=== PATIENT | male | born 1960 | race Caucasian/White ===

== ENCOUNTER 2016-12-16 16:50 | Inpatient (IN) | payer MEDICARE, OTHER ==
--- NOTE | ~2016-12-16 | CT71 ---
[facility] A Service of [facility] RADIOLOGY TEXT RESULTS PATIENT: ANKUR PINEDO LOCATION: C3A 308- : 59 UNIT #: [id number] AGE: [address]: Kevin Pitts MD SEX: M ORDER DR: [id number] [facility] [address] [facility]. [place], [place] [address] [id number] I MR#: [id number] Acc #: [id number] NAME: ANKUR PINEDO : 1960 SEX: M STUDY DATE/TIME: 12/16/2016 17:03 UNIT: C3A PCU ROOM: 308 STUDY DESCRIPTION: CT Head Wo Contrast Attending Physician: Kevin Pitts M.D. Ordering Physician: Daniela Rodriguez M.D. Primary Care Physician: Gregg Peña M.D. MEDICAL IMAGING REPORT This report is preliminary unless electronic signature is present EXAM Head CT without HISTORY Continuous shaking daily, alcohol withdrawal, noncompliant with medications. Fell three days ago. Pain The CT exam was performed with one or more of the following radiation dose reduction techniques: automatic exposure control, adjustment of mA and/or kV according to patient size, and iterative reconstruction. FINDINGS Routine noncontrast head CT is viewed. COMPARISON: 03/04/16. There is no displaced calvarial fracture. The mastoid air cells are clear. There is a mucous retention cyst or polyp in the left maxillary sinus. There is no evidence for acute intracranial hemorrhage or extraaxial fluid collection. The patient has generalized atrophy and the rfxf-bv-dnkztecn white matter low attenuation which is nonspecific likely due to small vessel disease. Small lacunes, prominent perivascular spaces, basal ganglia best appreciated left putamen not changed. Atherosclerotic vascular calcifications at the base of the brain. No acute cortical infarcts appreciated. No significant interval change from 03/04/16. No intracranial mass effect. If there is clinical continued concern for acute CVA followup imaging would be indicated preferably with MRI if patient is a candidate. IMPRESSION 1. No acute intracranial abnormality but if there is clinical concern [facility] A Service of [facility] RADIOLOGY TEXT RESULTS PATIENT: ANKUR PINEDO LOCATION: C3A 308-01 : 58 UNIT #: [id number] AGE: [address]: Kevin Pitts MD SEX: M ORDER DR: for an acute CVA followup imaging would be indicated preferably with an MRI if the patient is a candidate. 2. Atrophy and probable sequela of small vessel disease not appreciably changed from 03/04/16. Vascular calcifications are noted base of the brain. Dictated by... Tri Kebede M.D. THIS IS AN ELECTRONICALLY VERIFIED REPORT Tri Kebede M.D. at 12/17/2016 10:19 AM Rima TD: 12/17/2016 09:21 JOB #: [id number] MEDICAL IMAGING REPORT Page 1 of 1 COPY
--- NOTE | ~2016-12-16 | EKG ---
PATIENT: ANKUR PINEDO UNIT #: [id number] Ventricular Rate: 117 BPM Atrial Rate: 117 BPM P-R Interval: 128 ms QRS Duration: 84 ms Q-T Interval: 336 ms QTC Calculation(Bezet): 468 ms P [place]: 15 degrees Calculated R [place]: 29 degrees Calculated T [place]: 25 degrees Diagnosis Line: Sinus tachycardia Diagnosis Line: Otherwise normal ECG Diagnosis Line: When compared with ECG of 18-SEP-2016 02:32, Diagnosis Line: Vent. rate has increased BY 44 BPM Diagnosis Line: Confirmed by RAHEL GALARZA MD ([id number]) on 12/18/2016 Diagnosis Line: 9:15:26 AM INTERPRETING MD: MICHELL RAMIRES
--- NOTE | ~2016-12-16 | DS ---
Unit #: [id number] #: [id number] Patient: ANKUR PINEDO [id number] [address] [place], [place] [address] [id number] I MR#: [id number] NAME: ANKUR PINEDO ROOM: 308 Age: 56 Sex: M Admission Date: 12/16/2016 : 1960 Discharge Date: 12/19/2016 Attending Physician: Kevin Pitts M.D. Primary Care Physician: Gregg Peña M.D. DISCHARGE SUMMARY REASON FOR ADMISSION Drug/alcohol evaluation. HISTORY OF PRESENT ILLNESS/HOSPITAL COURSE The patient is a 56-year-old male with underlying and longstanding history of chronic alcohol abuse. He presented after he stated that he drinks approximately a case of beer on a daily basis. He also stated that he had fallen awkwardly, had some foot pain, and wished to have detox done. His blood alcohol level on admission was 170. CT head was performed without contrast on day of admission and was negative. RPR performed negative. X-rays of right foot performed negative for acute fracture. Chest x-ray did not reveal any acute process. Routine laboratory studies were assessed. No acute abnormalities were noted. Urine tox screen was negative. He was placed on CIWA protocol. Banana bag was administered daily at telemetry floor. Consultation was placed to Dr. Rich of Psychiatry Services, who recommended outpatient followup at [facility]. Today, he is otherwise well, alert, and oriented x3. We will plan to discharge him home in stable condition with understanding that he will follow up as an outpatient with [facility] for [facility]. He will also follow up with his primary care provider in 7 to 10 days. Overall, his prognosis is guarded at best secondary to his lack of insight into his chronic medical conditions as well as ongoing alcohol abuse. This was reinforced with him on numerous occasions. FINAL DISCHARGE DIAGNOSES 1. Alcohol abuse. 2. History of hypertension. 3. Noncompliance. 4. Obesity. FINAL DISCHARGE MEDICATIONS Librium 25 mg p.o. q.8, scheduled x5 days; Norvasc 5 mg p.o. daily; multivitamin daily. DISCHARGE CONDITION Stable. Unit #: [id number] #: [id number] Patient: ANKUR PINEDO DISCHARGE DISPOSITION Home. FOLLOWUP [facility] for outpatient drug and alcohol rehab program. Dictated by... Josephine Johnson/manuel TD: 12/20/2016 05:56 JOB #: [id number] DISCHARGE SUMMARY Page 1 of 1 X Kevin Pitts MD X DISCHARGE SUMMARY
--- NOTE | ~2016-12-16 | HP ---
Unit #: [id number] #: [id number] Patient: ANKUR PINEDO [id number] [address] [place], [place] [address] [id number] I MR#: [id number] NAME: ANKUR PINEDO ROOM: 71083 Age: 56 Sex: M Admission Date: 12/16/2016 : 1960 Attending Physician: Xiao Malin M.D. Primary Care Physician: Gregg Peña M.D. HISTORY AND PHYSICAL CHIEF COMPLAINT Drug/alcohol evaluation. HISTORY OF PRESENT ILLNESS The patient is a 56-year-old male with a history of chronic alcohol abuse, brought to the emergency room for the evaluation of the alcohol abuse. The patient stated the patient drinks a case of beer daily. The patient had the last drink four hours ago before presenting to the emergency room. The patient is also complaining of the fall yesterday and complaining of the foot pain, status post fall while he was drinking beer. The patient is being admitted for the above reasons. The patient's alcohol level is 170. The patient is also complaining of shakiness and denies any fever, nausea or vomiting, denies any head trauma. PAST MEDICAL HISTORY Depression, cirrhosis, hepatitis C, alcoholism, normocytic anemia, thrombocytopenia, gastroesophageal reflux disease, esophageal varices, hepatic encephalopathy. PAST SURGICAL HISTORY Appendectomy, nasal surgery. ALLERGIES Morphine. HOME MEDICATIONS He takes the Effexor XR, Toprol-XL, Vistaril, multivitamin and omeprazole. SOCIAL HISTORY Patient has multiple admissions in the past for the similar presentation and is an active alcohol abuser, denies illicit drug abuse and no tobacco. FAMILY HISTORY Mother with coronary artery disease and father with throat cancer. REVIEW OF SYMPTOMS Fourteen-point review of symptoms performed and only pertinent positive findings are described above and remaining are negative. PHYSICAL EXAMINATION GENERAL APPEARANCE: On examination the patient is lying on a bed not in acute distress. VITAL SIGNS: Temperature 99.7, pulse 131, respiratory rate 25, blood Unit #: [id number] #: [id number] Patient: ANKUR PINEDO pressure 111/79, sating 93% at room air. HEENT: Head atraumatic, normocephalic. Pupils equal, round and reacting to light and accommodation. Dry mucous membrane. NECK: Supple. No JVD. LUNGS: Clear to auscultation HEART: Regular rate and rhythm. ABDOMEN: Soft, positive bowel sounds. EXTREMITIES: Patient has a laceration at the right lower leg and the patient complains of the right foot. NEUROLOGIC: Patient has tremors at rest. No gross focal motor deficit. DIAGNOSTIC STUDIES LABORATORY DATA: Alcohol is 170. Glucose 105, BUN 11, creatinine 0.9, sodium 141, potassium 4, chloride 102, bicarb 22, calcium 8.4, total protein 8.7, AST 64, ALT 48, alkaline phosphatase 88 and CK is 216, INR is 1.1, WBC 12, hemoglobin 15.8, hematocrit 47.5, platelets 226. IMAGING: CT of the head is negative. Chest x-ray is negative. ASSESSMENT 1. Alcohol abuse. 2. Status post fall. PLAN 1. Plan is to admit the patient to the inpatient with the telemetry. 2. Continue with the [facility] protocol. 3. Check the x-ray of the right foot. 4. Repeat the labs again in the morning. Further recommendations will follow. Dictated by Josephine Olson TD: 12/16/2016 20:32 JOB #: [id number] HISTORY AND PHYSICAL Page 1 of 1 X X HISTORY AND PHYSICAL
--- NOTE | ~2016-12-16 | XA166 ---
[facility] A Service of [facility] RADIOLOGY TEXT RESULTS PATIENT: ANKUR PINEDO LOCATION: C3A PC 308- : 58 UNIT #: [id number] AGE: [address]: Kevin Pitts MD SEX: M ORDER DR: [id number] [place] [id number] [facility]. [place], [place] [address] [id number] I MR#: [id number] Acc #: [id number] NAME: ANKUR PINEDO : 1960 SEX: M STUDY DATE/TIME: 12/18/2016 7:31 UNIT: C3A PCU ROOM: 308 STUDY DESCRIPTION: XA PICC Line Placement WO Port Attending Physician: Kevin Pitts M.D. Ordering Physician: Allyssa Mohr M.D. Primary Care Physician: Gregg Peña M.D. MEDICAL IMAGING REPORT This report is preliminary unless electronic signature is present PRE-PROCEDURE The procedure was explained to the patient and/or patient financial representative including risks, benefits, potential complications and potential for alternative forms of treatment. Informed consent was obtained, and prior to initiating the procedure a formal timeout procedure was performed. PROCEDURE Using full standard sterile barrier technique, including caps, gowns, gloves, masks, as well as sterile skin preparation and standard sterile draping, the right arm was prepped and draped in the usual fashion, and real-time sterile ultrasound guidance was used to localize an arm vein and to confirm vessel patency. A hard copy ultrasound image was recorded. After local anesthesia with 1% Xylocaine, the vein was punctured using real-time sterile ultrasound guidance, and an 0.018 guidewire was advanced into the superior vena cava, using fluoroscopic guidance. A 5-Montenegrin dual-lumen PICC was then measured and deployed with the tip positioned in the superior vena cava. The position of the line was documented with a radiographic image. The line was secured in place with an adhesive dressing and an antibiotic patch was applied. Total fluoro time was 0.5 minutes. Single spot image obtained. IMPRESSION Successful placement of a 5-Montenegrin dual-lumen PowerPICC via the right arm under ultrasound and fluoroscopic guidance. The tip of the PICC is in good position in the superior vena cava. Dictated by... Kwame Barreto M.D. THIS IS AN ELECTRONICALLY VERIFIED REPORT Kwame Barreto M.D. at 12/22/2016 2:34 PM CHRISTIANA/hernan [facility] A Service of [facility] RADIOLOGY TEXT RESULTS PATIENT: ANKUR PINEDO LOCATION: C3A 308-01 : 58 UNIT #: [id number] AGE: [address]: Kevin Pitts MD SEX: M ORDER DR: TD: 12/22/2016 12:59 JOB #: [id number] MEDICAL IMAGING REPORT Page 1 of 1 COPY
--- NOTE | ~2016-12-16 | CO ---
Unit #: [id number] #: [id number] Patient: ANKUR PINEDO [id number] [address] [place], [place] [address] [id number] I MR#: [id number] NAME: ANKUR PINEDO ROOM: 308 Age: 56 Sex: M Admission Date: 12/16/2016 : 1960 Attending Physician: Kevin Pitts M.D. Primary Care Physician: Gregg Peña M.D. Consultation Date: 12/18/2016 CONSULTATION REPORT REASON FOR CONSULTATION Alcohol abuse withdrawals. HISTORY OF PRESENT ILLNESS Mr. Ankur Pinedo is a 56-year-old male, seen in [facility] on 12/18/2016 with the above-mentioned complaint. The patient was dressed in hospital attire, lying comfortably in bed, seemed somewhat anxious and nervous. The patient reported having shakes, anxiety, mood lability, restlessness, rapid heart rate, having withdrawal from alcohol. The patient reported that he was drinking almost 1 to 2 cases of beer a day for a long period of time. The patient currently denied any suicidal or homicidal ideation. Denied any psychotic symptom. The patient was admitted on 12/16/2016 with alcohol withdrawals. The patient reported that he was drinking on a daily basis and last drink was before admission. The patient's blood alcohol level was 170 at the time of admission. The patient was shaky, nervous, anxious, but currently denied any suicidal or homicidal ideation. Denied any psychotic symptom except for withdrawal from alcohol and severe anxiety. PAST PSYCHIATRIC HISTORY Remarkable for history of alcohol abuse. No history of any other psychiatric illness or treatment. PAST MEDICAL HISTORY Remarkable for history of depression, cirrhosis, hepatitis C, alcoholism, normocytic anemia, thrombocytopenia, gastroesophageal reflux disease, esophageal varices, hepatic encephalopathy. MEDICATIONS The patient is on Effexor XR, Toprol-XL, Vistaril, multivitamin, omeprazole. FAMILY HISTORY AND SOCIAL HISTORY The patient reports that he has good support system. No history of any abuse, but history of substance abuse mainly alcohol. No history of any illicit drug use. REVIEW OF SYSTEMS Complete review of systems is remarkable for severe anxiety, restlessness, anxious, tremors. MENTAL STATUS EXAMINATION General appearance, the patient dressed casually in hospital attire, lying comfortably in bed, seemed somewhat anxious and nervous. Attention span Unit #: [id number] #: [id number] Patient: ANKUR PINEDO and concentration, fair. Speech, regular rate and coherent. Oriented in time, place, and person. Mood and affect were sad, dysphoric, anxious. Thought process, coherent. Thought content, the patient denied any thoughts of harming self or others, but guarded. Recent and remote memory, fair. Language, able to name object, repeat phrases. Fund of knowledge, fair. Insight and judgment, fair to slightly impaired. DIAGNOSES Psychiatric: Alcohol use disorder, severe, F10.20; mood disorder, not otherwise specified, F32.9. Secondary diagnosis: Deferred. Medical diagnosis: Please refer to H and P. Stressors: Psychosocial stressors. ASSESSMENT AND PLAN 1. Supportive psychotherapy and psychoeducation provided to the patient. 2. Educated about benefits and side effects of medication and course and prognosis of illness. 3. Advised to continue with CIWA protocol and inpatient treatment. If needed, consider further adjustment of medication. Advised the patient to follow up after discharge at [facility] CD-IOP program telephone #[phone]. Please feel free to call if any questions, telephone #[phone]. 4. 1930. Dictated by... Abram Rich M.D. LARRY/manuel TD: 12/22/2016 00:29 JOB #: [id number] CONSULTATION REPORT Page 1 of 1 X Abram Rich MD X CONSULTATION REPORT
--- NOTE | ~2016-12-16 | CR72 ---
[facility] A Service of [facility] RADIOLOGY TEXT RESULTS PATIENT: ANKUR PINEDO LOCATION: [facility] 308- : 59 UNIT #: [id number] AGE: [address]: Kevin Pitts MD SEX: M ORDER DR: [id number] [facility] [address] [facility]. [place], [place] [address] [id number] I MR#: [id number] Acc #: [id number] NAME: ANKUR PINEDO : 1960 SEX: M STUDY DATE/TIME: 12/16/2016 16:31 [facility] STUDY DESCRIPTION: CR Chest Single View Portable Attending Physician: Kevin Pitts M.D. Ordering Physician: Daniela Rodriguez M.D. Primary Care Physician: Gregg Peña M.D. MEDICAL IMAGING REPORT This report is preliminary unless electronic signature is present EXAM Portable chest. INDICATIONS 56-year-old male with cough and shortness of breath for 3 days. COMPARISON Compared with 09/12/2016. FINDINGS The lungs are well expanded. No acute infiltrate. Calcified hilar lymph nodes. IMPRESSION No active disease. Dictated by... Evan Miles M.D. THIS IS AN ELECTRONICALLY VERIFIED REPORT Evan Miles M.D. at 12/17/2016 11:32 AM ANTIONE/seble TD: 12/17/2016 08:40 JOB #: [id number] MEDICAL IMAGING REPORT Page 1 of 1 COPY
--- NOTE | ~2016-12-16 | CR127 ---
[facility] A Service of [facility] & [facility] RADIOLOGY TEXT RESULTS PATIENT: ANKUR PINEDO LOCATION: C3A 308- : 58 UNIT #: [id number] AGE: [address]: Kevin Pitts MD SEX: M ORDER DR: [id number] [facility] [address] [facility]. [place], [place] [address] [id number] I MR#: [id number] Acc #: [id number] NAME: ANKUR PINEDO : 1960 SEX: M STUDY DATE/TIME: 12/16/2016 20:02 UNIT: A U ROOM: [facility] STUDY DESCRIPTION: CR Foot Complete Min 3 View Rt Attending Physician: Kevin Pitts M.D. Ordering Physician: Ed Nathan Mojica M.D. Primary Care Physician: Gregg Peña M.D. MEDICAL IMAGING REPORT This report is preliminary unless electronic signature is present EXAM Foot, right, 3 views. HISTORY Anterior foot pain for 3 days after a fall. COMMENT 3 views of the right foot are reviewed. There is a comminuted fracture involving the distal diametaphysis of the right fifth metatarsal. Fracture is comminuted with some impaction predominantly horizontally oriented. No obvious intraarticular extension. Vascular calcifications suggest diabetes or renal disease. IMPRESSION Fracture of the distal diametaphysis, fifth metatarsal, details above. No intraarticular extension. Fracture is predominantly impacted. Dictated by... Tri Kebede M.D. THIS IS AN ELECTRONICALLY VERIFIED REPORT Tri Kebede M.D. at 12/17/2016 12:19 PM FE/seble TD: 12/17/2016 11:39 JOB #: [id number] MEDICAL IMAGING REPORT Page 1 of 1 COPY
[2016-12-16 16:26] LABS: BASOPHIL% 0.4 % (0-2.5); EOSINOPHIL# 0.1 X10e3 (0-0.7); EOSINOPHIL% 0.7 % (0.0-7.0); HEMATOCRIT 47.5 % (38.0-50.0); HEMOGLOBIN 15.8 gm/dL (13.0-16.0); LYMPHOCYTE# 5.5 X10e3 (1.0-3.5); LYMPHOCYTE% 46.1 % (17.0-45.0); MEAN CELL VOLUME 90.6 FL (83-96); MEAN CORPUSCULAR HEMOGLOBIN 30.1 PG (28-34); MEAN CORPUSCULAR HGB CONC 33.3 g/dL (30-36); MEAN PLATELET VOLUME 7.3 FL (6.5-11.5); MONOCYTE# 0.6 X10e3 (0-1.0); MONOCYTE% 5.1 % (3.0-12.0); NEUTROPHIL# 5.7 X10e3 (1.5-7.1); NEUTROPHIL% 47.7 % (40-75); PLATELET COUNT 226 X10e3 (140-420); RED BLOOD COUNT 5.25 X10e (3.90-5.60); RED CELL DISTRIBUTION WIDTH 16.1 % (11.0-15.5)
[2016-12-16 16:28] LABS: DIFF IND NO
[2016-12-16 16:32] LABS: POC - TROPONIN <0.05 ng/mL (<=0.05)
[2016-12-16 16:43] LABS: INR 1.1; PARTIAL THROMBOPLASTIN TIME 24.4 SECONDS (23.5-31.3); PROTHROMBIN TIME (PATIENT) 11.4 SECONDS (9.6-11.5)
[~2016-12-16 16:50] MED LIST: ACETAMINOPHEN PO; AL-MAG HYDROX-S30 M1 PO; ALBUTEROL17 GM INH; AMLODIPINE BESYL5 MG PO; ATIVAN0.5 M1 PO; ATIVAN0.5 MG PO; BENTYL10 MG PO; BUSPAR15 M2 PO; CELEXA20 MG PO; CIPRO PO; CVS MENOPAUSE PO; DAILY VALUE1 EACH PO; EFFEXOR XR150 MG PO; FAMOTIDINE PO; FLUOXETINE HCL60 MG PO; FOLIC ACID1 MG PO; HYDROXYZINE HCL50 MG PO; IBUPROFEN400 MG PO; KRISTALOSE20 G/PK1 PO; LEVAQUIN750 MG PO; LIBRAX CAPSULE1 CA1 PO; LIBRIUM PO; LIBRIUM25 M1 PO; LIBRIUM25 MG PO; LOPERAMIDE HCL2 M1 PO; LORTAB 5/500 TA1 TA1 PO; METOPROLOL TAR25 MG PO; MULTI VITAMIN1 EACH PO; MULTIVITAMIN WI1 CAP PO; NEURONTIN600 MG PO; NEURONTIN800 MG PO; NO MEDICATIONS; OMEPRAZOLE20 M2 PO; OMEPRAZOLE40 M1 PO; PANTOPRAZOLE SO40 MG PO; PERCOCET; PHENERGAN PO; PHENERGAN25 MG PO; PREVACID PO; PRILOSEC PO; PRILOSEC20 MG PO; PROTONIX PO; PROZAC PO; REMERON PO; REMERON15 MG PO; SEROQUEL PO; SEROQUEL XR400 M1 PO; SEROQUEL400 MG PO; SEROQUEL50 MG PO; SPIRONOLACTONE50 MG PO; TEGRETOL-XR100 MG PO; THIAMINE HCL100 M1 PO; TOPROL XL50 MG PO; UNKNOWN MEDS; VISTARIL PO; VITAMIN B-COMP1 EACH PO; ZANTAC PO; ZANTAC150 MG PO; ZOFRAN PO; ZOLOFT PO; [UNRECOGNIZED DRUG - REMARK]
[2016-12-16 17:18] LABS: ALBUMIN SERUM 4.2 g/dL (3.5-5.0); ALKALINE PHOSPHATASE 88 U/L (32-92); ALT (SGPT) 48 U/L (10-40); AST (SGOT) 64 U/L (10-42); BILIRUBIN, DIRECT 0.1 mg/dL (0.0-0.2); BILIRUBIN,INDIRECT 0.8 mg/dL (0.0-0.9); BILIRUBIN,TOTAL 0.9 mg/dL (0.2-2.0); BLOOD UREA NITROGEN 11 mg/dL (9-23); BUN/CREATININE RATIO 12.22; CALCIUM SERUM 8.4 mg/dL (8.4-10.2); CARBON DIOXIDE 22 mmol/L (22-31); CHLORIDE 102 mmol/L (100-111); CPK (CREATINE PHOSPHOKINASE) 216 IU/L (36-174); CREATININE SERUM 0.9 mg/dL (0.6-1.4); GLOM FILT RATE Estimated ABOVE60 mL/min (>60); GLUCOSE FASTING 105 mg/dL (70-110); PROTEIN TOTAL SERUM 8.7 g/dL (6.0-8.3); SODIUM 141 mmol/L (135-145)
[2016-12-16 17:20] LABS: ALCOHOL BLOOD 170 mg/dL (0)
[2016-12-16 17:34] LABS: INFLUENZA A NEG (NEG); INFLUENZA B NEG (NEG)
[2016-12-16 18:18] LABS: URINE SOURCE CLEAN CATCH
[2016-12-16 18:29] LABS: URINE APPEARANCE CLEAR; URINE BILIRUBIN NEG (NEG); URINE BLOOD NEG (NEG); URINE COLOR YELLOW; URINE GLUCOSE NEG (NEG); URINE KETONE NEG (NEG); URINE LEUKOCYTE ESTERASE NEG (NEG); URINE NITRATE NEG (NEG); URINE PH 6.5 (5-8); URINE PROTEIN 1+ (NEG); URINE SPECIFIC GRAVITY 1.017 (1.003-1.035)
[2016-12-16 18:32] LABS: URINE BACTERIA AUWI NEG (NEGATIVE); URINE SQUAMOUS EPITHELIAL CELL NONE SEEN /[HPF]; UWBCS1 AUWI 0-2 (0-5)
[2016-12-16 18:39] LABS: CULTURE INDICATED? NO
[2016-12-16 18:40] LABS: AMPHETAMINE NEG (NEG); BARBITURATES NEG (NEG); BENZODIAZEPINES NEG (NEG); COCAINE NEG (NEG); MARIJUANA NEG (NEG); OPIATES NEG (NEG); TRICYCLIC ANTIDEPRESSANTS NEG (NEG); U METHADONE NEG (NEG)
[2016-12-17 09:23] LABS: BASOPHIL% 0.3 % (0-2.5); EOSINOPHIL# 0.1 X10e3 (0-0.7); LYMPHOCYTE# 2.8 X10e3 (1.0-3.5); LYMPHOCYTE% 46.7 % (17.0-45.0); MEAN CELL VOLUME 90.2 FL (83-96); MEAN CORPUSCULAR HEMOGLOBIN 30.1 PG (28-34); MEAN CORPUSCULAR HGB CONC 33.4 g/dL (30-36); MEAN PLATELET VOLUME 7.2 FL (6.5-11.5); MONOCYTE# 0.5 X10e3 (0-1.0); MONOCYTE% 8.7 % (3.0-12.0); NEUTROPHIL# 2.6 X10e3 (1.5-7.1); NEUTROPHIL% 43.3 % (40-75); PLATELET COUNT 126 X10e3 (140-420); RED BLOOD COUNT 4.44 X10e (3.90-5.60); RED CELL DISTRIBUTION WIDTH 15.3 % (11.0-15.5)
[2016-12-17 09:30] LABS: DIFF IND NO; HEMOGLOBIN 13.4 gm/dL (13.0-16.0); WHITE BLOOD COUNT 5.9 X10e3 (4.0-10.5)
[2016-12-17 10:21] LABS: THYROID STIMULATING HORMONE 1.07 uIU/ml (0.34-5.60)
[2016-12-17 10:28] LABS: FREE THYROXIN (T4) 0.64 ng/dL (0.58-1.64)
[2016-12-17 10:33] LABS: ALBUMIN SERUM 3.7 g/dL (3.5-5.0); ALKALINE PHOSPHATASE 78 U/L (32-92); ALT (SGPT) 38 U/L (10-40); AST (SGOT) 49 U/L (10-42); BILIRUBIN,TOTAL 1.1 mg/dL (0.2-2.0); BLOOD UREA NITROGEN 11 mg/dL (9-23); BUN/CREATININE RATIO 13.75; CALCIUM SERUM 8.3 mg/dL (8.4-10.2); CARBON DIOXIDE 24 mmol/L (22-31); CHLORIDE 105 mmol/L (100-111); CREATININE SERUM 0.8 mg/dL (0.6-1.4); GLOM FILT RATE Estimated ABOVE60 mL/min (>60); GLUCOSE FASTING 119 mg/dL (70-110); POTASSIUM 3.6 mmol/L (3.5-5.1); PROTEIN TOTAL SERUM 7.4 g/dL (6.0-8.3); SODIUM 138 mmol/L (135-145)
[2016-12-18 05:45] LABS: HEMATOCRIT 37.2 % (38.0-50.0); HEMOGLOBIN 12.6 gm/dL (13.0-16.0); MEAN CELL VOLUME 89.2 FL (83-96); MEAN CORPUSCULAR HEMOGLOBIN 30.3 PG (28-34); MEAN CORPUSCULAR HGB CONC 33.9 g/dL (30-36); MEAN PLATELET VOLUME 7.3 FL (6.5-11.5); RED BLOOD COUNT 4.17 X10e (3.90-5.60); RED CELL DISTRIBUTION WIDTH 15.9 % (11.0-15.5); WHITE BLOOD COUNT 4.6 X10e3 (4.0-10.5)
[2016-12-18 06:40] LABS: BLOOD UREA NITROGEN 8 mg/dL (9-23); BUN/CREATININE RATIO 13.33; CALCIUM SERUM 8.6 mg/dL (8.4-10.2); CARBON DIOXIDE 24 mmol/L (22-31); CHLORIDE 107 mmol/L (100-111); CREATININE SERUM 0.6 mg/dL (0.6-1.4); GLOM FILT RATE Estimated ABOVE60 mL/min (>60); GLUCOSE FASTING 123 mg/dL (70-110); MAGNESIUM 1.6 mg/dL (1.6-3.0); POTASSIUM 3.2 mmol/L (3.5-5.1); SODIUM 138 mmol/L (135-145)
[2016-12-19 08:38] LABS: BUN/CREATININE RATIO 15.71; CALCIUM SERUM 8.9 mg/dL (8.4-10.2); CREATININE SERUM 0.7 mg/dL (0.6-1.4); GLOM FILT RATE Estimated 104.8 mL/min (>60); MAGNESIUM 1.8 mg/dL (1.6-3.0); POTASSIUM 3.9 mmol/L (3.5-5.1)
[2016-12-19] MEDS ORDERED: TYL325 PO (12:19)
[2016-12-19] MEDS ORDERED: AL-MAG HYDROX-S30 M1 PO (12:20)
[2016-12-19] MEDS ORDERED: NORVASC PO (12:21)
[2016-12-19] MEDS ORDERED: LIBRIUM25 MG PO (12:21)
== END 2016-12-19 14:58 | disposition home or self-care (01) | DRG 897 ==
LOC: CED 16:50 → CEDOF 20:01 → C3A PCU 22:40
PROVIDERS: Emergency Medicine; Family Medicine; Internal Medicine
PROC: 02HV33Z Insertion of Infusion Device into Superior Vena Cava, Percutaneous Approach (ICD-10-PCS; principal; 2016-12-18)
PROC: B518YZA Fluoroscopy of Superior Vena Cava using Other Contrast, Guidance (ICD-10-PCS; 2016-12-18)
PROC: B548ZZA Ultrasonography of Superior Vena Cava, Guidance (ICD-10-PCS; 2016-12-18)
DX: F10.239 Alcohol dependence with withdrawal, unspecified (principal); F39 Unspecified mood [affective] disorder; F32.9 Major depressive disorder, single episode, unspecified; Z91.19 Patient's noncompliance with other medical treatment and regimen; E66.9 Obesity, unspecified; F17.210 Nicotine dependence, cigarettes, uncomplicated; K21.9 Gastro-esophageal reflux disease without esophagitis; Z90.49 Acquired absence of other specified parts of digestive tract; Z82.49 Family history of ischemic heart disease and other diseases of the circulatory system; Z80.8 Family history of malignant neoplasm of other organs or systems; Z88.5 Allergy status to narcotic agent; S81.811A Laceration without foreign body, right lower leg, initial encounter; W19.XXXA Unspecified fall, initial encounter
CPT/HCPCS: 36415; 70450; 71010; 73630; 76937; 77001; 80048; 80053; 80076; 80307; 81003; 82550; 82553; 82607; 83735; 84439; 84443; 84484; 85025; 85027; 85610; 85730; 86592; 87804; 90688; 93005; 94760; 96361; 96374; 96376; 99285; C1751; G0480; J1650; J2060; J2550; J3411; J7042

== ENCOUNTER 2016-12-26 23:48 | Inpatient (IN) | payer MEDICARE, OTHER ==
--- NOTE | ~2016-12-26 | CO ---
Unit #: [id number] #: [id number] Patient: ANKUR PINEDO [id number] [facility] [address] [place] [address] [id number] I MR#: [id number] NAME: ANKUR PINEDO ROOM: [facility] Age: 56 Sex: M Admission Date: 12/26/2016 : 1960 Attending Physician: Madi Barragan M.D. Primary Care Physician: Gregg Peña M.D. CONSULTATION REPORT REASON FOR CONSULT Right foot issue. SUBJECTIVE "I somehow fell and I have a bruise on my foot and my little toe. It's a lot better than it was now but it was bruised." OBJECTIVE Vital signs within normal limits. Noted small approximately 1 cm bruised area to lateral right fifth toe, slight discoloration to right fifth metatarsal area. No pain to palpation. Good range of motion noted to foot and toes and ankle. ASSESSMENT Bruise. PLAN Observation. Dictated by... Marlene Mitchell/jacoby TD: 12/27/2016 20:20 JOB #: [id number] CONSULTATION REPORT Page 1 of 1 X Xiomara Blackwell APR X CONSULTATION REPORT
--- NOTE | ~2016-12-26 | PN ---
Unit #: [id number] #: [id number] Patient: ANKUR PINEDO [id number] [facility] [address] [place] [address] [id number] I MR#: [id number] NAME: ANKUR PINEDO ROOM: [facility] Age: 56 Sex: M Admission Date: 12/26/2016 : 1960 Attending Physician: Madi Barragan M.D. Admitting Physician: Madi Barragan M.D. Primary Care Physician: Josephine Alexis PROGRESS NOTES DATE OF SERVICE: 12/31/2016 SUBJECTIVE Mr. Pinedo is a 56-year-old white male, who was seen today and chart was reviewed and the case was discussed with the staff. He has been anxious, withdrawn, and rather seclusive to himself. Meanwhile, he has been cooperative with treatment recommendations and was taking the medications and tolerating them fairly well with no reported side effects. MENTAL STATUS EXAMINATION: Middle-aged white male, who was casually dressed with marginal personal hygiene, appears to be in some distress or discomfort. He was awake and alert with impaired attention and concentration. His mood was anxious with a congruent affect. His speech was slow and restricted in content. His thought process was disorganized with some looseness of association. His insight and judgment remain significantly impaired. TREATMENT PLAN: 1. We will continue him on his current medications and treatment protocol. We will monitor his response to the medications and make further adjustments as needed. 2. We will continue to follow up. Dictated by... Josephine Delcid/manuel TD: 12/31/2016 08:17 JOB #: [id number] [facility] PROGRESS NOTES Page 1 of 1 X Madi Barragan MD PROGRESS NOTE
--- NOTE | ~2016-12-26 | PN ---
Unit #: [id number] #: [id number] Patient: ANKUR PINEDO [id number] [facility] [address] [place] [address] [id number] I MR#: [id number] NAME: ANKUR PINEDO ROOM: [facility] Age: 56 Sex: M Admission Date: 12/26/2016 : 1960 Attending Physician: Madi Barragan M.D. Admitting Physician: Madi Barragan M.D. Primary Care Physician: Josephine Alexis PROGRESS NOTES DATE 01/02/2017 DISCUSSION Mr. Pinedo is a 56-year-old white male with alcohol dependence and mood disorder who was seen today and chart was reviewed and case was discussed with the staff who report patient has been doing better and patient still seemed to be anxious, withdrawn, unkempt, disheveled though he states feeling somewhat better. He has been compliant with the treatment recommendations and taking medications and tolerating them fairly well with no reported side effects. MENTAL STATUS EXAMINATION Middle-aged white male who was casually dressed with fair personal hygiene and appears to be in no acute distress or discomfort. He was awake and alert on interaction with intact orientation. His mood was anxious with congruent affect. His speech is slow and restricted in content. He denies any suicidal or homicidal ideations. His insight and judgement remains slightly impaired. TREATMENT PLAN 1. We will continue on his current medications and treatment protocol. Will monitor his response to the medications and make further adjustments as needed. 2. Will continue to follow up. Dictated by... Josephine Delcid/jacoby TD: 01/02/2017 19:30 JOB #: [id number] Unit #: [id number] #: [id number] Patient: ANKUR PINEDO PROGRESS NOTES Page 1 of 1 X Madi Barragan MD PROGRESS NOTE
--- NOTE | ~2016-12-26 | DS ---
Unit #: [id number] #: [id number] Patient: ANKUR PINEDO [id number] [facility] [address] [place] [address] [id number] MR#: [id number] NAME: ANKUR PINEDO ROOM: [facility] Age: 56 Sex: M Admission Date: 12/26/2016 : 1960 Discharge Date: 01/05/2017 Attending Physician: Madi Barragan M.D. Primary Care Physician: Gregg Peña M.D. DISCHARGE SUMMARY IDENTIFYING DATA Mr. Pinedo is a 56-year-old white male who is a resident of [place], [place] and is known to us from previous encounters and was transferred to us from [facility] on a voluntary basis. DISCHARGE DIAGNOSES Psychiatric: Alcohol dependence, moderate, in acute withdrawals. Alcohol-induced mood disorder. Medical: Hypertension, hepatitis C, esophageal varices, history of cerebrovascular accident, and history of pancreatitis. Stressors: Moderate psychosocial stressors. HISTORY OF PRESENT ILLNESS Please see initial evaluation for details. PAST PSYCHIATRIC HISTORY Please see initial evaluation for details. PAST MEDICAL HISTORY Please see initial evaluation for details. HOSPITAL COURSE The patient was admitted to the adult chemical dependency unit at [facility] and was oriented to the hospital environment. Routine p.r.n. medications were initiated and he was started back on his home medications and was closely monitored. He was taking the medications regularly. He was tolerating them fairly well and was able to come out of the detox without any complications and was willing to continue treatment on an outpatient basis and as such, it was decided that he will be discharged home and will continue treatment on an outpatient basis. DISCHARGE MEDICATIONS Seroquel 200 mg at bedtime for mood disorder; Effexor XR 150 mg a day for depression; Protonix 40 mg a day for gastroesophageal reflux disease. DISCHARGE CONDITION Stable. PROGNOSIS Fair. Unit #: [id number] #: [id number] Patient: ANKUR PINEDO Dictated by... Josephine Delcid/chuchol TD: 01/05/2017 06:47 JOB #: [id number] DISCHARGE SUMMARY Page 1 of 1 X Madi Barragan MD SUMMARY
--- NOTE | ~2016-12-26 | CR63 ---
[facility] A Service of [facility] RADIOLOGY TEXT RESULTS PATIENT: ANKUR PINEDO LOCATION: P1E P180-1 : 58 UNIT #: [id number] AGE: [address]: Madi Barragan MD SEX: M ORDER DR: [id number] [facility] [address]. [place], [place] [address] [id number] I MR#: [id number] Acc #: [id number] NAME: ANKUR PINEDO : 1960 SEX: M STUDY DATE/TIME: 12/29/2016 16:59 UNIT: [facility] ROOM: [facility] STUDY DESCRIPTION: CR Chest 2 View Attending Physician: Madi Barragan M.D. Ordering Physician: Madi Barragan M.D. Primary Care Physician: Gregg Peña M.D. MEDICAL IMAGING REPORT This report is preliminary unless electronic signature is present EXAM 2-view chest, 12/29/2016 INDICATION Cough and fever. FINDINGS PA and lateral views of the chest compared to 12/16/2016. Heart and mediastinal contour is normal. The lungs are clear. There is slightly increased density in the retrocardiac left lower lobe. IMPRESSION Slight increased density in the retrocardiac left lower lobe may represent atelectasis or developing infiltrate. Please correlate with clinical symptoms. Dictated by... Zachary Singer M.D. THIS IS AN ELECTRONICALLY VERIFIED REPORT Zachary Singer M.D. at 12/29/2016 10:07 PM Stiven TD: 12/29/2016 21:38 JOB #: [id number] MEDICAL IMAGING REPORT Page 1 of 1 COPY
--- NOTE | ~2016-12-26 | PN ---
Unit #: [id number] #: [id number] Patient: ANKUR FREEMAN [id number] [facility] [address] [place] [address] [id number] I MR#: [id number] NAME: ANKUR FREEMAN ROOM: [facility] Age: 56 Sex: M Admission Date: 12/26/2016 : 1960 Attending Physician: Madi Barragan M.D. Admitting Physician: Madi Barragan M.D. Primary Care Physician: Josephine Alexis PROGRESS NOTES DATE OF SERVICE: 12/28/2016 SUBJECTIVE Mr. Freeman is a 56-year-old white male, who was seen today and chart was reviewed and the case was discussed with the staff. He has been anxious, withdrawn, in distress and discomfort as he goes through detox and has been complaining of unsteady gait and his stomach hurting and has not been able to take care of his personal hygiene and has not been able to come out and participate in therapy groups. Meanwhile, he has been taking the medications and tolerating them fairly well with no reported side effects. MENTAL STATUS EXAMINATION Middle-aged white male, who was casually dressed with marginal personal hygiene, appears to be in no acute distress or discomfort. He was awake and alert on interaction with intact orientation. His mood was anxious with a congruent affect. His speech was slow and restricted in content. He denies any current suicidal or homicidal ideations and also denies any auditory or visual hallucinations. His insight and judgment remain slightly impaired. TREATMENT PLAN 1. We will continue him on his current medications and treatment protocol. We will monitor his response to the medications and make further adjustments as needed. 2. We will continue to follow up. Dictated by... Madi Barragan M.D. IAA/chuchol TD: 12/29/2016 14:22 JOB #: [id number] Unit #: [id number] #: [id number] Patient: ANKUR FREEMAN PROGRESS NOTES Page 1 of 1 X Madi Barragan MD X PROGRESS NOTE
--- NOTE | ~2016-12-26 | PA ---
Unit #: [id number] #: [id number] Patient: ANKUR FREEMAN [id number] [facility] [address] [place] [address] [id number] MR#: [id number] NAME: ANKUR FREEMAN ROOM: P180 Age: 56 Sex: M Admission Date: 12/26/2016 : 1960 Date of Assessment: Attending Physician: Madi Barragan M.D. Admitting Physician: Madi Barragan M.D. Primary Care Physician: Gregg Peña M.D. PSYCHIATRIC ASSESSMENT DATE OF SERVICE 12/27/2016. IDENTIFYING DATA Mr. Freeman is a 56-year-old, , disabled, white male, who is a resident of [place], [place], and is very well known to us from previous multiple encounters and was transferred to us from [facility] on a voluntary basis. CHIEF COMPLAINT "I need to detox from alcohol." HISTORY OF PRESENT ILLNESS Mr. Freeman is a 56-year-old white male with long history of alcohol dependence and history of complicated withdrawals including delirium tremens, who was once again taken to [facility] stating that he has relapsed on alcohol and reported having suicidal ideation and reports that he has been abusing alcohol around two cases of beer a day and half a pint of whiskey a day with last consumption a day ago and having some significant withdrawal symptoms and having a history of withdrawal seizures, history of delirium tremens, and reports visual disturbance symptoms and sometimes "I see bugs." He was seen to be in acute distress and discomfort and was unkempt and disheveled and was seen to be a significant danger to self and therefore recommendation for inpatient level of care for safety and stabilization was made. The patient medically cleared at [facility] and then was transferred to us. SUBSTANCE ABUSE HISTORY The patient reports alcohol to be his drug of choice and has been drinking since he was 12 years old and currently has been drinking two cases of beer and half a pint of whiskey a day, but denies any other drug abuse. PAST PSYCHIATRIC HISTORY The patient has had a history of multiple inpatient psychiatric and chemical dependency treatments including [facility] and has a history of poor compliance with outpatient treatment and has not been taking his medication and as such, has been decompensating. PAST MEDICAL HISTORY Hepatitis C, hypertension, esophageal varices, history of cerebrovascular accident, and history of alcoholic pancreatitis. Unit #: [id number] #: [id number] Patient: ANKUR FREEMAN ALLERGIES No known medication allergies. PERSONAL AND SOCIAL HISTORY A 56-year-old white male, who reports that he is single, unemployed, disabled, and lives alone and has poor social support system. MENTAL STATUS EXAMINATION Middle-aged white male, who was casually dressed with fair personal hygiene, appears to be in no acute distress or discomfort. He was awake and alert on interaction with intact orientation to time, place, and person. His mood was anxious and depressed with a congruent affect. His speech was slow and restricted in content. His thought processes were disorganized with some looseness of associations and suicidal ideations. His insight and judgment remain significantly impaired. DIAGNOSTIC IMPRESSION Psychiatric: Alcohol dependence, moderate, in acute withdrawals and alcohol-induced mood disorder. Medical: Hypertension, hepatitis C, esophageal varices, history of cerebrovascular accident, and history of pancreatitis. Stressors: Moderate psychosocial stressors. TREATMENT PLAN 1. The patient has presented with a history of mood disorder and substance abuse and dependence and will need inpatient hospitalization for safety and stabilization. We will start him on detox protocol. We will closely monitor for any worsening withdrawal symptoms. 2. Supportive therapy was provided to the patient. 3. Safe, structured, and nourishing environment will be provided. ESTIMATED LENGTH OF STAY 5 to 7 days. ABILITY TO HELP SELF Limited. WILLINGNESS TO HELP SELF The patient appears to be willing to help self. STRENGTHS 1. Communicative. 2. Cooperative. PROBLEMS 1. Chronic dysphoric symptoms. 2. Chronic chemical dependency. 3. Poor social support system. DISCHARGE CRITERIA This will be contingent upon the patient's ability to show resolution of his depression and anxiety and his ability to go through detox without having any significant withdrawal symptoms. Dictated by... Madi Barragan M.D. Unit #: [id number] #: [id number] Patient: ANKUR FREEMAN IAA/modl TD: 12/27/2016 13:06 JOB #: [id number] PSYCHIATRIC ASSESSMENT Page 1 of 1 X Madi Barragan MD PSYCHIATRIC ASSESSMENT
--- NOTE | ~2016-12-26 | PN ---
Unit #: [id number] #: [id number] Patient: ANKUR PINEDO [id number] [facility] [address] [place] [address] [id number] I MR#: [id number] NAME: ANKUR PINEDO ROOM: [facility] Age: 56 Sex: M Admission Date: 12/26/2016 : 1960 Attending Physician: Madi Barragan M.D. Admitting Physician: Madi Barragan M.D. Primary Care Physician: Josephine Alexis PROGRESS NOTES DATE 12/30/2016 DISCUSSION Mr. Pinedo is a 56-year-old white male who was seen today. Chart was reviewed and case was discussed with the staff. He has been anxious, withdrawn, and rather seclusive to himself and does appear to be in distress or discomfort and has been unkempt, disheveled, and unable to function or perform activities of daily living. He describes himself to be in significant discomfort. He has been taking the medications and tolerating them fairly well. MENTAL STATUS EXAMINATION Middle-aged white male who is casually dressed with marginal personal hygiene, appears to be in no acute distress or discomfort. The patient was awake and alert with impaired attention and concentration. His mood is anxious and depressed with congruent affect. His speech is slow and restricted in content. He denies any suicidal or homicidal ideations and also denies any auditory or visual hallucinations. His insight and judgment remain slightly impaired. TREATMENT PLAN 1. We will continue him on his current medications and treatment protocol. We will monitor his response to the medications and make further adjustments as needed. 2. We will continue to follow up. Dictated by... Josephine Delcid/miriamg TD: 12/31/2016 09:46 JOB #: [id number] Unit #: [id number] #: [id number] Patient: ANKUR PINEDO PROGRESS NOTES Page 1 of 1 X Madi Barragan MD PROGRESS NOTE
--- NOTE | ~2016-12-26 | PN ---
Unit #: [id number] #: [id number] Patient: ANKUR PINEDO [id number] [facility] [address] [place] [address] [id number] I MR#: [id number] NAME: ANKUR PINEDO ROOM: [facility] Age: 56 Sex: M Admission Date: 12/26/2016 : 1960 Attending Physician: Madi Barragan M.D. Admitting Physician: Madi Barragan M.D. Primary Care Physician: Josephine Alexis PROGRESS NOTES DATE 01/03/2017 DISCUSSION Mr. Pinedo is a 56-year-old, white male who was seen today and chart was reviewed and case was discussed with the staff. He has been anxious, withdrawn though appears to be doing much better on detox and needs to get up and take a shower and clean himself up. He has been taking the medication and tolerating them fairly well with no reported side effects. MENTAL STATUS EXAM Middle-aged white male who was casually dressed with fair personal hygiene, appears to be in no acute distress or discomfort. He was awake and alert on interaction with intact orientation. His mood was anxious with congruent affect. His speech was slow and goal directed. He denies any suicidal or homicidal ideation. His insight and judgement remains slightly impaired. TREATMENT PLAN 1. We will continue him on his current medications and treatment protocol. We will monitor his response to the medication and make further adjustments as needed. 2. We will continue to follow up. Dictated by... Josephine Delcid/adelia TD: 01/04/2017 23:51 JOB #: [id number] Unit #: [id number] #: [id number] Patient: ANKUR PINEDO PROGRESS NOTES Page 1 of 1 X Madi Barragan MD PROGRESS NOTE
--- NOTE | ~2016-12-26 | CO ---
Unit #: [id number] #: [id number] Patient: ANKUR PINEDO [id number] [facility] [address] [place] [address] [id number] I MR#: [id number] NAME: ANKUR PINEDO ROOM: [facility] Age: 56 Sex: M Admission Date: 12/26/2016 : 1960 Attending Physician: Mdai Barragan M.D. Primary Care Physician: Gregg Peña M.D. CONSULTATION REPORT SUBJECTIVE Ankur is a 56-year-old admitted originally because of his continued abuse of alcohol. We were asked to see him for right foot pain. I spoke with him today he has no complaints of foot pain and denies any injury. What he does need help with and does complain of is deep cough productive of small amounts of yellow sputum and some increased shortness of breath. He had been started on Levaquin 500 mg one p.o. daily x7 days, albuterol Mini-Neb q.4 hours while awake and Depo-Medrol 80 mg IM injection. Chest x-ray tonight showed left lower lobe atelectasis with possible lower lobe infiltrate. ASSESSMENT Pneumonia. PLAN Continue current medications. Dictated by... Tianna Koch/manuel TD: 12/29/2016 19:33 JOB #: [id number] CONSULTATION REPORT Page 1 of 1 X Claudine Cruz CONSULTATION REPORT
--- NOTE | ~2016-12-26 | HP ---
Unit #: [id number] #: [id number] Patient: ANKUR PINEDO [id number] [place] [address] [id number] I MR#: [id number] NAME: ANKUR PINEDO ROOM: 80 Age: 56 Sex: M Admission Date: 12/26/2016 : 1960 Attending Physician: Madi Barragan M.D. Admitting Physician: Madi Barragan M.D. Primary Care Physician: Gregg Peña M.D. HISTORY AND PHYSICAL HISTORY OF PRESENT ILLNESS The patient is a 56-year-old male who states he is here for alcohol abuse, drinks approximately 1 case of beer per day. PAST MEDICAL HISTORY History of depression. PAST SURGICAL HISTORY Appendectomy. ALLERGIES Patient states none. SOCIAL HISTORY Positive for alcohol. FAMILY HISTORY Noncontributory. REVIEW OF SYSTEMS CONSTITUTIONAL: No fever or chills. HEENT: Denies any sore throat, ear pain or runny nose. CARDIOVASCULAR: Denies chest pain, irregular heart rhythm or palpitations. CHEST: Denies shortness of breath or cough. No hemoptysis. GASTROINTESTINAL: Denies nausea, vomiting, diarrhea or chronic constipation. ENDOCRINE: Denies history of increased thirst or urination. No recent significant weight loss or gain. GENITOURINARY: Denies dysuria, frequency, or hematuria. SKIN: Denies any rashes. HEMATOLOGIC: Denies history of increased bleeding or bruising. MUSCULOSKELETAL: Denies any hot, swollen joints. No generalized muscle pain. NEUROLOGIC: Denies problems with vision or speech. No frequent, severe headaches. No numbness, tingling or weakness in any extremities. Denies loss of bladder or bowel control. CURRENT MEDICATIONS 1. Effexor 150 mg p.o. daily. 2. Seroquel 200 mg p.o. q.h.s. 3. Trazodone 100 mg p.o. q.h.s. 4. Ibuprofen 800 mg p.o. q. 6 hours p.r.n. Unit #: [id number] #: [id number] Patient: ANKUR PINEDO PHYSICAL EXAMINATION GENERAL: Alert, oriented, in no acute distress. VITAL SIGNS: Temperature 97.9, heart rate 88, respirations 18, blood pressure 155/101. HEIGHT: 5 feet 8 inches. WEIGHT: 230 pounds. SKIN: Bruise to the left upper arm, the left knee. Abrasion to the right knee. A scar to the midline abdomen and a scar to the left subscapular area and a bruise to the right fifth metatarsal and right fifth toe area. HEENT: Normocephalic. TMs not viewed. Oral and nasal passages clear. Conjunctivae clear. PERRLA. EOMs intact. NECK: Supple without lymphadenopathy or thyromegaly. HEART: Regular rate and rhythm without murmur. LUNGS: Clear. ABDOMEN: Soft, nontender, without masses or hepatosplenomegaly. : Not done. EXTREMITIES: No evidence of cyanosis, clubbing or edema. Moves all without focal deficit. NEUROLOGICAL: Grossly within normal limits. Cranial Nerves: II: Visual tejeda are intact. III, IV AND : Extraocular movements are intact. Pupils are equal, round and reactive to light. V: Facial sensation is grossly normal. VII: Facial movements and expression are normal. VIII: Auditory acuity grossly intact. IX, X: Uvula is midline. Phonation is normal. XI: Patient shrugs shoulders and turns head normally. XII: Tongue protrudes in the midline. Sensory and Motor Function: Sensory and motor sensation is grossly normal. Motor: moves all extremities well. Coordination: Gait is normal. Deep Tendon Reflexes: Intact. IMPRESSION Psychiatric admission. RECOMMENDATIONS PSYCHIATRIC: Per psychiatrist. MEDICAL: No contraindications to participate in facility's activities. MEDICAL PROGNOSIS Good. Dictated by... Marlene Mitchell/jacoby TD: 12/27/2016 20:11 JOB #: [id number] Unit #: [id number] #: [id number] Patient: ANKUR PINEDO HISTORY AND PHYSICAL Page 1 of 1 X Xiomara Blackwell APR X HISTORY AND PHYSICAL
--- NOTE | ~2016-12-26 | PN ---
Unit #: [id number] #: [id number] Patient: ANKUR PINEDO [id number] [facility] [address] [place] [address] [id number] MR#: [id number] NAME: ANKUR PINEDO ROOM: [facility] Age: 56 Sex: M Admission Date: 12/26/2016 : 1960 Attending Physician: Madi Barragan M.D. Admitting Physician: Madi Barragan M.D. Primary Care Physician: Gregg Peña M.D. [facility] PROGRESS NOTES DATE 12/29/2016 DISCUSSION Mr. Pinedo is a 56-year-old white male with mood disorder and substance abuse who was seen today and chart was reviewed and case was discussed with the staff. He has been anxious, withdrawn, seclusive to himself with poor personal hygiene and significant body odor and as matter of fact the whole room smells so bad it has to be blocked and cannot even walk in there because patient has been curled in his bed and has been making statements that he has never felt this bad and that he is not feeling good and describes himself to be in distress and discomfort as he goes through detox and has been complaining of different symptoms for which medication has been provided and yesterday Protonix and Bentyl was initiated as well. Meanwhile, he has been compliant with the treatment recommendations though does not appear to be showing a therapeutic response. MENTAL STATUS EXAMINATION Middle-aged white male who was casually dressed with poor personal hygiene and appears to be in distress and discomfort. He was awake and alert with impaired attention and concentration. His mood was anxious with congruent affect. His speech is slow and tangential. His thought processes were disorganized with some looseness of associations and flight of ideas and suicidal ideation. His insight and judgement remains significantly impaired. TREATMENT PLAN 1. Will continue on his current medications, detox protocol and level of precautions. Will monitor his response to medication and make further adjustments as needed. 2. Will continue to follow up. Dictated by... Josephine Delcid/jacoby TD: 12/30/2016 23:19 JOB #: [id number] Unit #: [id number] #: [id number] Patient: ANKUR PINEDO PROGRESS NOTES Page 1 of 1 X Madi Barragan MD X PROGRESS NOTE
--- NOTE | ~2016-12-26 | PN ---
Unit #: [id number] #: [id number] Patient: ANKUR PINEDO [id number] [facility] [address] [place] [address] [id number] MR#: [id number] NAME: ANKUR PINEDO ROOM: [facility] Age: 56 Sex: M Admission Date: 12/26/2016 : 1960 Attending Physician: Madi Barragan M.D. Admitting Physician: Madi Barragan M.D. Primary Care Physician: Josephine Alexis PROGRESS NOTES DATE 01/01/2017 DISCUSSION Mr. Pinedo is a 56-year-old white male who was seen today and chart was reviewed and case was discussed with the staff. He has been anxious, withdrawn, unkempt, disheveled and rather seclusive to himself. Meanwhile, he has been taking medications and tolerating them fairly well with no reported side effects. MENTAL STATUS EXAMINATION Middle-aged white male who was casually dressed with marginal personal hygiene and appears to be in no acute distress or discomfort. He was awake and alert on interaction with impaired attention and concentration. His mood was anxious with congruent affect. His speech is slow and restricted in content. His thought processes were disorganized with some looseness of associations and paranoid ideations. He suicidal or homicidal ideations. His insight and judgement remains significantly impaired. TREATMENT PLAN 1. Will continue on his current medications and treatment protocol. Will monitor his to the medications. Make further adjustments as needed. 2. Will continue to follow up. Dictated by... Josephine Delcid/jacoby TD: 01/01/2017 16:02 JOB #: [id number] Unit #: [id number] #: [id number] Patient: ANKUR PINEDO PROGRESS NOTES Page 1 of 1 X Madi Barragan MD PROGRESS NOTE
--- NOTE | ~2016-12-26 | PN ---
Unit #: [id number] #: [id number] Patient: ANKUR PINEDO [id number] [facility] [address] [place] [address] [id number] I MR#: [id number] NAME: ANKUR PINEDO ROOM: 80 Age: 56 Sex: M Admission Date: 12/26/2016 : 1960 Attending Physician: Madi Barragan M.D. Admitting Physician: Madi Barragan M.D. Primary Care Physician: Josephine Alexis PROGRESS NOTES DATE 01/04/2017 DISCUSSION Mr. Pinedo is a 56-year-old, white male who was seen today and chart was reviewed and case was discussed with the staff. He has been anxious, withdrawn and rather seclusive to himself. Meanwhile, he has been cooperative with treatment recommendations. He has been taking medication and tolerating them fairly well. MENTAL STATUS EXAM Middle-aged white male who was casually dressed with fair personal hygiene, appears to be in no acute distress or discomfort. He was awake and alert on interaction with intact orientation. His mood was anxious and depressed with congruent affect. He denies any suicidal or homicidal ideation. His insight and judgement remains slightly impaired. TREATMENT PLAN 1. We will continue him on his current medications and treatment protocol. We will monitor his response to the medication and make further adjustments as needed. 2. We will continue to follow up. Dictated by... Josephine Delcid/adelia TD: 01/05/2017 21:14 JOB #: [id number] Unit #: [id number] #: [id number] Patient: ANKUR PINEDO PROGRESS NOTES Page 1 of 1 X Madi Barragan MD X PROGRESS NOTE
[~2016-12-26 23:48] MED LIST changes: +NORVASC PO; +TYL325 PO
[2016-12-27 12:55] LABS: BASOPHIL% 0.4 % (0-2.5); EOSINOPHIL# 0.1 X10e3 (0-0.7); EOSINOPHIL% 1.3 % (0.0-7.0); HEMOGLOBIN 14.2 gm/dL (13.0-16.0); LYMPHOCYTE# 2.9 X10e3 (1.0-3.5); LYMPHOCYTE% 40.7 % (17.0-45.0); MEAN CELL VOLUME 92.8 FL (83-96); MEAN CORPUSCULAR HEMOGLOBIN 30.7 PG (28-34); MEAN PLATELET VOLUME 7.9 FL (6.5-11.5); MONOCYTE# 0.9 X10e3 (0-1.0); MONOCYTE% 12.2 % (3.0-12.0); NEUTROPHIL# 3.2 X10e3 (1.5-7.1); NEUTROPHIL% 45.4 % (40-75); PLATELET COUNT 179 X10e3 (140-420); RED BLOOD COUNT 4.63 X10e (3.90-5.60); RED CELL DISTRIBUTION WIDTH 16.5 % (11.0-15.5); WHITE BLOOD COUNT 7.1 X10e3 (4.0-10.5)
[2016-12-27 12:58] LABS: DIFF IND NO
[2016-12-27 13:19] LABS: ALBUMIN SERUM 3.7 g/dL (3.5-5.0); BILIRUBIN,TOTAL 0.8 mg/dL (0.2-2.0); BUN/CREATININE RATIO 6.36; CALCIUM SERUM 9.2 mg/dL (8.4-10.2); CREATININE SERUM 1.1 mg/dL (0.6-1.4); GLOM FILT RATE Estimated 74.1 mL/min (>60); POTASSIUM 3.9 mmol/L (3.5-5.1); PROTEIN TOTAL SERUM 7.6 g/dL (6.0-8.3)
[2016-12-27 13:27] LABS: THYROID STIMULATING HORMONE 1.83 uIU/ml (0.34-5.60)
[2016-12-27 13:33] LABS: FREE THYROXIN (T4) 0.54 ng/dL (0.58-1.64)
[2016-12-28 11:50] LABS: URINE APPEARANCE CLEAR; URINE BILIRUBIN NEG (NEG); URINE BLOOD NEG (NEG); URINE COLOR YELLOW; URINE GLUCOSE NEG (NEG); URINE KETONE NEG (NEG); URINE LEUKOCYTE ESTERASE NEG (NEG); URINE NITRATE NEG (NEG); URINE PROTEIN NEG (NEG); URINE SPECIFIC GRAVITY 1.013 (1.003-1.035); URINE UROBILINOGEN 0.2 MG/DL (NEG)
[2016-12-28 12:07] LABS: AMPHETAMINE NEG (NEG); BARBITURATES NEG (NEG); BENZODIAZEPINES POS (NEG); COCAINE NEG (NEG); MARIJUANA NEG (NEG); OPIATES NEG (NEG); TRICYCLIC ANTIDEPRESSANTS NEG (NEG); U METHADONE NEG (NEG)
== END 2017-01-05 09:20 | disposition home or self-care (01) | DRG 897 ==
LOC: P1E 23:48
PROVIDERS: Psychiatry & Neurology Psychiatry
DX: F10.239 Alcohol dependence with withdrawal, unspecified (principal); F10.24 Alcohol dependence with alcohol-induced mood disorder; I10 Essential (primary) hypertension; S90.121A Contusion of right lesser toe(s) without damage to nail, initial encounter
CPT/HCPCS: 36415; 71020; 80048; 80053; 80076; 80307; 81003; 83690; 84439; 84443; 85025; 86592; 96361; 96374; 96375; 99284; 99285; G0480; J1040; J2765

== ENCOUNTER 2017-01-23 15:45 | Inpatient (IN) | payer MEDICARE, OTHER ==
--- NOTE | ~2017-01-23 | PN ---
Unit #: [id number] #: [id number] Patient: ANKUR PINEDO [id number] [facility] [address] [place] [address] [id number] MR#: [id number] NAME: ANKUR PINEDO ROOM: [facility] Age: 56 Sex: M Admission Date: 01/23/2017 : 1960 Attending Physician: Madi Barragan M.D. Admitting Physician: Madi Barragan M.D. Primary Care Physician: Josephine Alexis PROGRESS NOTES DATE 01/24/2017 DISCUSSION Mr. Pinedo is a 56-year-old, white male who was seen today and chart was reviewed and case was discussed with the staff. He has been anxious, withdrawn though has not shown any agitation, irritability or behavioral problems and has been cooperative with treatment recommendations. He has been taking medications and tolerating them fairly well with no reported side effects. MENTAL STATUS EXAM Middle-aged white male who was casually dressed with fair personal hygiene, appears to be in no acute distress or discomfort. He was awake and alert with intact orientation. His mood was anxious with congruent affect. His speech was slow and goal directed. He denies any suicidal or homicidal ideation. Also, denies any auditory or visual hallucinations. His insight and judgement remains slightly impaired. TREATMENT PLAN 1. We will continue him on his current medications and treatment protocol. We will monitor his response and make further adjustments as needed. 2. We will continue to follow up. Dictated by... Josephine Delcid/adelia TD: 01/25/2017 04:26 JOB #: [id number] Unit #: [id number] #: [id number] Patient: ANKUR PINEDO PROGRESS NOTES Page 1 of 1 X Madi Barragan MD PROGRESS NOTE
--- NOTE | ~2017-01-23 | PN ---
Unit #: [id number] #: [id number] Patient: ANKUR PINEDO [id number] [facility] [address] [place] [address] [id number] MR#: [id number] NAME: ANKUR PINEDO ROOM: [facility] Age: 56 Sex: M Admission Date: 01/23/2017 : 1960 Attending Physician: Madi Barragan M.D. Admitting Physician: Madi Barragan M.D. Primary Care Physician: Josephine Alexis PROGRESS NOTES DATE 01/26/2017 DISCUSSION Mr. Pinedo is a 56-year-old, white male who was seen today and chart was reviewed and case was discussed with the staff. He has been anxious, withdrawn and rather seclusive to himself. Meanwhile, he has been cooperative with the treatment recommendations. He has been taking the medication and tolerating them fairly well with no reported side effects. MENTAL STATUS EXAM Middle-aged white male who was casually dressed with fair personal hygiene, appears to be in no acute distress or discomfort. He was awake and alert on interaction with intact orientation. His mood was anxious with congruent affect. He denies any suicidal or homicidal ideation. His insight and judgement remains slightly impaired. TREATMENT PLAN 1. We will continue him on his current medications and treatment protocol. We will monitor his response to the medication and make further adjustments as needed. 2. We will continue to follow up. Dictated by... Josephine Delcid/adelia TD: 01/27/2017 04:23 JOB #: [id number] Unit #: [id number] #: [id number] Patient: ANKUR PINEDO PROGRESS NOTES Page 1 of 1 X Madi Barragan MD PROGRESS NOTE
--- NOTE | ~2017-01-23 | PA ---
Unit #: [id number] #: [id number] Patient: ANKUR PINEDO [id number] [place] [address] [id number] MR#: [id number] NAME: ANKUR PINEDO ROOM: 74 Age: 56 Sex: M Admission Date: 01/23/2017 : 1960 Date of Assessment: Attending Physician: Madi Barragan M.D. Admitting Physician: Madi Barragan M.D. Primary Care Physician: Gregg Peña M.D. PSYCHIATRIC ASSESSMENT DATE OF SERVICE 01/23/2017. IDENTIFYING DATA Mr. Pinedo is a 56-year-old , disabled white male who is known to us from previous encounter, was self-referred to the hospital. Upon presentation, he had a blood alcohol level of 0.229, and describes himself to be in distress and discomfort and has history of withdrawal seizures and delirium tremens and reports that he was discharged from the hospital and supposed to come to the outpatient treatment program and he did not show up and relapsed soon afterwards and since then, he has been drinking 2 cases of beer and half a pint of whiskey a day with last consumption a day before and does indicate significant withdrawal symptoms and history of withdrawal seizures and delirium tremens, and was seen to be unkempt, disheveled, in distress and discomfort and as such, recommendation for inpatient level of care for safety and stabilization was made. SUBSTANCE ABUSE HISTORY The patient reports history of alcohol dependence and denies any other drug abuse and reports drinking a pint of vodka a day and 2 cases of beer a day. PAST PSYCHIATRIC HISTORY The patient has had history of multiple inpatient psychiatric and chemical dependency and rehabilitation treatment, and currently is not active in any treatment program and review of the medical records indicate that he is supposed to be on Effexor and Seroquel, but is not clear if he has been compliant with medications. PAST MEDICAL HISTORY The patient's medical history is significant for gastroesophageal reflux disease, hypertension, hepatitis C, esophageal varices, history of cerebrovascular accident, and history of pancreatitis. ALLERGIES No known medication allergies. PERSONAL AND SOCIAL HISTORY A 56-year-old white male who reports that he is single, disabled, and lives alone and has poor social support system. MENTAL STATUS EXAMINATION Middle-aged white male who was casually dressed with fair personal Unit #: [id number] #: [id number] Patient: ANKUR PINEDO hygiene, appears to be in no acute distress or discomfort. He was awake and alert on interaction with intact orientation to time, place, and person. His mood was anxious and depressed with a congruent affect. His speech was slow and restricted in content. His thought processes were disorganized with some looseness of associations and flight of ideas. His insight and judgment remain significantly impaired. DIAGNOSTIC IMPRESSION Psychiatric: Alcohol dependence, moderate and acute withdrawals; alcohol-induced mood disorder. Medical: Hypertension, hepatitis C, esophageal varices, history of cerebrovascular accident, and history of pancreatitis. Stressors: Moderate psychosocial stressors. TREATMENT PLAN 1. The patient has presented with history of substance abuse and mood disorder, and has been decompensating and will need inpatient hospitalization for detoxification, safety, and stabilization. We will start him back on his home medications. We will adjust the medications and monitor response. 2. Supportive therapy was provided to the patient. 3. Safe, structured, and nourishing environment will be provided. ESTIMATED LENGTH OF STAY 5 to 7 days. ABILITY TO HELP SELF Limited. WILLINGNESS TO HELP SELF The patient appears to be willing to help self. STRENGTHS 1. Communicative. 2. Cooperative. PROBLEMS 1. Chronic dysphoric symptoms. 2. Chronic chemical dependency. 3. Poor social support system. DISCHARGE CRITERIA This will be contingent upon the patient's ability to go through detox without having any significant withdrawal symptoms as well as his ability to stay safe to himself, particularly after discharge from the hospital. Dictated by... Jospehine Delcid/manuel TD: 01/24/2017 14:49 JOB #: [id number] Unit #: [id number] #: [id number] Patient: ANKUR PINEDO PSYCHIATRIC ASSESSMENT Page 1 of 1 X Madi Barragan MD X PSYCHIATRIC ASSESSMENT
--- NOTE | ~2017-01-23 | DS ---
Unit #: [id number] #: [id number] Patient: [facility]UR PINEDO [id number] [facility] [address] [place] [address] [id number] I MR#: [id number] NAME: ANKUR PINEDO ROOM: [facility] Age: 56 Sex: M Admission Date: 01/23/2017 : 1960 Discharge Date: 01/28/2017 Attending Physician: Madi Barragan M.D. Primary Care Physician: Gregg Peña M.D. DISCHARGE SUMMARY IDENTIFICATION DATA Mr. Pinedo is a 56-year-old , disabled white male who is known to us from previous encounter and was self-referred to the hospital. DISCHARGE DIAGNOSES PSYCHIATRIC: Alcohol dependence, moderate, in acute distress. MEDICAL: Hypertension. Hepatitis C (1) __. History of cerebrovascular accident. History of pancreatitis. STRESSORS: Moderate psychosocial stressors. HISTORY OF PRESENT ILLNESS Same as in initial psychiatric evaluation. PAST PSYCHIATRIC HISTORY Same as in initial psychiatric evaluation. PAST MEDICAL HISTORY Same as in initial psychiatric evaluation. HOSPITAL COURSE The patient was [facility] at [facility] and was oriented to the hospital environment. Routine p.r.n. medications were initiated, and he was started on the detox protocol and was closely monitored. He was anxious, withdrawn, unkempt, disheveled, though did not have any complications going through detox, and as such it was decided that he will be discharged, and we will continue treatment on outpatient basis. DISCHARGE MEDICATIONS 1. Seroquel 200 mg at bedtime for depression. 2. Effexor XR 150 mg in the morning for depression. CONDITION AT DISCHARGE Stable. PROGNOSIS Fair. Dictated by... Unit #: [id number] #: [id number] Patient: ANKUR PINEDO Josephine Delcid/bzg TD: 01/28/2017 07:25 JOB #: [id number] DISCHARGE SUMMARY Page 1 of 1 X Madi Barragan MD X DISCHARGE SUMMARY
--- NOTE | ~2017-01-23 | PN ---
Unit #: [id number] #: [id number] Patient: ANKUR PINEDO [id number] [facility] [address] [place] [address] [id number] I MR#: [id number] NAME: ANKUR PINEDO ROOM: 74 Age: 56 Sex: M Admission Date: 01/23/2017 : 1960 Attending Physician: Madi Barragan M.D. Admitting Physician: Madi Barragan M.D. Primary Care Physician: Josephine Alexis PROGRESS NOTES DATE 01/27/2017 DISCUSSION Mr. Pinedo is a 56-year-old white male who was seen today and chart was reviewed and case was discussed with the staff. He appears to be doing better and has been able to get out of his room and has been walking around and appears to be coming out of the detox without any complications. He states that he would like to leave tomorrow as he reports his has cancer and she is in a different state and he is planning on traveling with his family members to go visit his from whom he apparently has been . MENTAL STATUS EXAMINATION Middle-aged white male who was casually dressed with fair personal hygiene and appears to be in no acute distress or discomfort. He was awake and alert on interaction with intact orientation. His mood was anxious with congruent affect. He denies any suicidal or homicidal ideations and also denies any auditory or visual hallucinations. His insight and judgement remains slightly impaired. TREATMENT PLAN 1. We will continue his current medications and treatment protocol. Will monitor his response to medications and make further adjustments as needed. 2. Will continue to follow up. Dictated by... Josephine Delcid/jacoby TD: 01/27/2017 15:56 JOB #: [id number] Unit #: [id number] #: [id number] Patient: ANKUR PINEDO PROGRESS NOTES Page 1 of 1 X Madi Barragan MD PROGRESS NOTE
--- NOTE | ~2017-01-23 | HP ---
Unit #: [id number] #: [id number] Patient: ANKUR PINEDO [id number] [facility] [address] [place] [address] [id number] I MR#: [id number] NAME: ANKUR PINEDO ROOM: [facility] Age: 56 Sex: M Admission Date: 01/23/2017 : 1960 Attending Physician: Madi Barragan M.D. Admitting Physician: Madi Barragan M.D. Primary Care Physician: Gregg Peña M.D. HISTORY AND PHYSICAL HISTORY OF PRESENT ILLNESS Ankur is a 56-year-old male admitted on 01/23/[address] [place] [address] for detox from alcohol and suicidal ideation. He was recently admitted on 12/26/2016 I reviewed the history and physical from that admission and there are no changes. Dictated by... Marlene Tavarez TD: 01/24/2017 20:37 JOB #: [id number] HISTORY AND PHYSICAL Page 1 of 1 X CASEY ADAMS APRN HISTORY AND PHYSICAL
--- NOTE | ~2017-01-23 | PN ---
Unit #: [id number] #: [id number] Patient: ANKUR PINEDO [id number] [facility] [address] [place] [address] [id number] MR#: [id number] NAME: ANKUR PINEDO ROOM: [facility] Age: 56 Sex: M Admission Date: 01/23/2017 : 1960 Attending Physician: Madi Barragan M.D. Admitting Physician: Madi Barragan M.D. Primary Care Physician: Josephine Alexis PROGRESS NOTES DATE January 25, 2017 DISCUSSION Mr. Pinedo is a 56-year-old white male, with alcohol dependence and mood disorder, who was seen today and chart was reviewed and the case was discussed with the staff. He was seen to be anxious, withdrawn, unkept, and disheveled and seclusive to himself, and he described himself to be in distress and discomfort. He has not had any agitation or aggression. Meanwhile, he has been taking the medications and tolerating them fairly well. MENTAL STATUS EXAMINATION Middle-aged white male, who was casually dressed with marginal personal hygiene and appears to be in distress and discomfort. He is awake and alert with intact orientation. His mood is anxious with a congruent affect. His speech is slow and restricted in content. He denies any current suicidal or homicidal ideations, and also denies any auditory or visual hallucinations. His insight and judgment remain slightly impaired. TREATMENT PLAN 1. We will continue him on his current medications and detox protocol, and will monitor his response to the medications, and make further adjustments as needed. 2. We will continue to followup. Dictated by... Josephine Delcid/daniel TD: 01/26/2017 08:01 JOB #: [id number] Unit #: [id number] #: [id number] Patient: ANKUR PINEDO PROGRESS NOTES Page 1 of 1 X Madi Barragan MD X PROGRESS NOTE
[2017-01-26 12:37] LABS: BASOPHIL% 0.3 % (0-2.5); EOSINOPHIL# 0.1 X10e3 (0-0.7); EOSINOPHIL% 2.9 % (0.0-7.0); HEMATOCRIT 38.5 % (38.0-50.0); HEMOGLOBIN 12.8 gm/dL (13.0-16.0); LYMPHOCYTE# 1.9 X10e3 (1.0-3.5); LYMPHOCYTE% 48.6 % (17.0-45.0); MEAN CORPUSCULAR HGB CONC 33.3 g/dL (30-36); MEAN PLATELET VOLUME 8.5 FL (6.5-11.5); MONOCYTE# 0.2 X10e3 (0-1.0); NEUTROPHIL# 1.8 X10e3 (1.5-7.1); NEUTROPHIL% 44.2 % (40-75); RED BLOOD COUNT 4.15 X10e (3.90-5.60); RED CELL DISTRIBUTION WIDTH 14.9 % (11.0-15.5)
[2017-01-26 12:48] LABS: ALBUMIN SERUM 3.6 g/dL (3.5-5.0); BILIRUBIN,TOTAL 0.7 mg/dL (0.2-2.0); BUN/CREATININE RATIO 16.25; CREATININE SERUM 0.8 mg/dL (0.6-1.4); GLOM FILT RATE Estimated 99.2 mL/min (>60); POTASSIUM 3.8 mmol/L (3.5-5.1)
[2017-01-26 12:57] LABS: DIFF IND YES; PLATELET COUNT 92 X10e3 (140-420)
[2017-01-26 13:00] LABS: ANISOCYTOSIS SL; PLATELET ESTIMATE DECREASED (NORMAL)
[2017-01-27 09:41] LABS: URINE APPEARANCE CLOUDY; URINE BILIRUBIN NEG (NEG); URINE BLOOD NEG (NEG); URINE COLOR DK YELLOW; URINE GLUCOSE NEG (NEG); URINE KETONE NEG (NEG); URINE LEUKOCYTE ESTERASE NEG (NEG); URINE NITRATE NEG (NEG); URINE PROTEIN NEG (NEG); URINE SPECIFIC GRAVITY 1.017 (1.003-1.035)
[2017-01-27 10:05] LABS: AMPHETAMINE NEG (NEG); BARBITURATES NEG (NEG); BENZODIAZEPINES POS (NEG); COCAINE NEG (NEG); MARIJUANA NEG (NEG); OPIATES NEG (NEG); TRICYCLIC ANTIDEPRESSANTS POS (NEG); U METHADONE NEG (NEG)
== END 2017-01-28 09:50 | disposition home or self-care (01) | DRG 897 ==
LOC: P1E 15:45
PROVIDERS: Psychiatry & Neurology Psychiatry
PROC: HZ2ZZZZ Detoxification Services for Substance Abuse Treatment (ICD-10-PCS; principal; 2017-01-23)
DX: F10.239 Alcohol dependence with withdrawal, unspecified (principal); I85.00 Esophageal varices without bleeding; F10.24 Alcohol dependence with alcohol-induced mood disorder; I10 Essential (primary) hypertension; B19.20 Unspecified viral hepatitis C without hepatic coma; Z86.73 Personal history of transient ischemic attack (TIA), and cerebral infarction without residual deficits
CPT/HCPCS: 80053; 80307; 81003; 85025; 86592

== ENCOUNTER 2017-04-06 14:14 | Inpatient (IN) | payer MEDICARE, OTHER ==
--- NOTE | ~2017-04-06 | PA ---
Unit #: [id number] #: [id number] Patient: ANKUR FREEMAN [id number] [facility] [address] [place] [address] [id number] MR#: [id number] NAME: ANKUR FREEMAN ROOM: P178 Age: 56 Sex: M Admission Date: 04/07/2017 : 1960 Date of Assessment: 04/07/2017 Attending Physician: Madi Barragan M.D. Admitting Physician: Madi Barragan M.D. Primary Care Physician: Gregg Peña M.D. PSYCHIATRIC ASSESSMENT DATE OF SERVICE 04/07/2017. IDENTIFYING DATA Mr. Freeman is a 56-year-old , disabled, white male, who is a resident of [place], [place], and is known to us from previous multiple encounters and was self-referred to the hospital on a voluntary basis. CHIEF COMPLAINT "I've been drinking." HISTORY OF PRESENT ILLNESS Mr. Freeman is a 56-year-old white male with a long history of alcohol dependence, who was brought to the hospital and was seen to be intoxicated and sent out to the emergency room at [facility] after having a seizure in the lobby of [facility] and reports that he has been on Vivitrol injection to help with his sobriety and reports his last injection was a couple of months ago. He could not find a place and they took his insurance and reported relapsed and has been drinking every day and that he has suffered from withdrawal symptoms and has a history of delirium tremens and withdrawal seizures and was seen to be tremulous and hallucinating and was kept in the hospital for a couple of days and was medically cleared and transferred to us. SUBSTANCE ABUSE HISTORY The patient reports history of alcohol dependence and reports that he has been drinking 16 beers a day. He denies any other drug abuse. PAST PSYCHIATRIC HISTORY The patient has had history of numerous and multiple inpatient chemical dependency treatments at Our and has been diagnosed and treated for mood disorder and alcohol dependence, but has history of poor compliance with outpatient treatment and once again, he is not active in any treatment program on outpatient basis. PAST MEDICAL HISTORY The patient's medical history is significant for hypertension, hepatitis C, esophageal varices, history of cerebrovascular accident, history of pancreatitis. ALLERGIES No known medication allergies. Unit #: [id number] #: [id number] Patient: ANKUR FREEMAN PERSONAL AND SOCIAL HISTORY A 56-year-old white male, who reports that he is single, disabled, and lives alone and has poor social support system. MENTAL STATUS EXAMINATION Middle-aged white male who was casually dressed with fair personal hygiene, appears to be in no acute distress or discomfort. He was awake and alert on interaction with intact orientation to time, place, and person. His mood was anxious and depressed with a congruent affect. His speech was slow and restricted in content. His thought processes were disorganized with some looseness of associations and flight of ideas. He denies any suicidal or homicidal ideations and also denies any auditory or visual hallucinations. His insight and judgment remain significantly impaired. DIAGNOSTIC IMPRESSION Psychiatric: Alcohol dependence, moderate and acute withdrawals; alcohol-induced mood disorder. Medical: Hypertension, hepatitis C, esophageal varices, history of cerebrovascular accident, history of pancreatitis. Stressors: Moderate psychosocial stressors. TREATMENT PLAN 1. The patient has presented with history of mood disorder, and has been decompensating and will need inpatient hospitalization for detoxification, safety, and stabilization. We will start him on detox protocol. We will monitor his response to the medications and make further adjustments as needed. 2. Supportive therapy was provided to the patient. 3. Safe, structured, and nourishing environment will be provided. ESTIMATED LENGTH OF STAY 4 to 5 days. ABILITY TO HELP SELF Limited. WILLINGNESS TO HELP SELF The patient appears to be willing to help self. STRENGTHS 1. Communicative. 2. Cooperative. PROBLEMS 1. Chronic dysphoric symptoms. 2. Poor social support system. DISCHARGE CRITERIA This will be contingent upon the patient's ability to go through detox without having any significant withdrawal symptoms as well as his ability to stay safe to himself, particularly after discharge from the hospital. Dictated by... Madi Barragan M.D. Unit #: [id number] #: [id number] Patient: ANKUR FREEMAN IAA/modl TD: 04/09/2017 00:49 JOB #: [id number] PSYCHIATRIC ASSESSMENT Page 1 of 1 X Madi Barragan MD PSYCHIATRIC ASSESSMENT
--- NOTE | ~2017-04-06 | HP ---
Unit #: [id number] #: [id number] Patient: ANKUR PINEDO [id number] [place] [address] [id number] MR#: [id number] NAME: ANKUR PINEDO ROOM: P1 Age: 56 Sex: M Admission Date: 04/07/2017 : 1960 Attending Physician: Madi Barragan M.D. Admitting Physician: Madi Barragan M.D. Primary Care Physician: Gregg Peña M.D. HISTORY AND PHYSICAL HISTORY OF PRESENT ILLNESS Ankur is a 56 year old admitted to [facility] because of his continued abuse of alcohol. He has had numerous admissions to this facility. PAST MEDICAL HISTORY 1. Long history of alcohol abuse. 2. History of withdrawal seizures. 3. High blood pressure. 4. History pancreatitis. 5. History of ulcerated esophagitis. 6. History of paroxysmal atrial fib, 2009. 7. Degenerative disc disease. PAST SURGICAL HISTORY 1. T & A 2. Appendectomy. ALLERGIES Morphine. SOCIAL HISTORY He does not smoke. Drinks at least a case of beer on a daily basis. Denies illicit drug use. FAMILY HISTORY Medically noncontributory. REVIEW OF SYSTEMS CONSTITUTIONAL: No fever or chills. HEENT: Denies any sore throat, ear pain or runny nose. CARDIOVASCULAR: Denies chest pain, irregular heart rhythm or palpitations. CHEST: Denies shortness of breath or cough. No hemoptysis. GASTROINTESTINAL: Denies nausea, vomiting, diarrhea or chronic constipation. ENDOCRINE: Denies history of increased thirst or urination. No recent significant weight loss or gain. GENITOURINARY: Denies dysuria, frequency, or hematuria. SKIN: Denies any rashes. HEMATOLOGIC: Denies history of increased bleeding or bruising. MUSCULOSKELETAL: Denies any hot, swollen joints. No generalized muscle pain. NEUROLOGIC: Denies problems with vision or speech. No frequent, severe Unit #: [id number] #: [id number] Patient: ANKUR PINEDO headaches. No numbness, tingling or weakness in any extremities. Denies loss of bladder or bowel control. CURRENT MEDICATIONS 1. Detox protocol 2. Effexor XR 150 mg q day 3. Zestril 20 mg q day 4. Protonix 40 mg q day PHYSICAL EXAMINATION GENERAL: Alert, well-nourished, in no apparent distress. VITAL SIGNS: Blood pressure 145/92, heart rate 80, respirations 16, temperature 98.6. WEIGHT: 180 pounds. HEIGHT: 5'8". SKIN: Warm and dry without rash or lesion. HEENT: Normocephalic. TMs not viewed. Oral and nasal passages clear. Conjunctivae clear. Pupils equal, round and reactive to light and accommodation. Extraocular movements intact. NECK: Supple without lymphadenopathy or thyromegaly. HEART: Regular rate and rhythm without murmur. LUNGS: Clear. ABDOMEN: Soft, nontender. : Not done. EXTREMITIES: No evidence of cyanosis, clubbing or edema. Moves all extremities without focal deficit. NEUROLOGICAL: Grossly within normal limits. Cranial Nerves: II: Visual tejeda are intact. III, IV AND : Extraocular movements are intact. Pupils are equal, round and reactive to light. V: Facial sensation is grossly normal. VII: Facial movements and expression are normal. VIII: Auditory acuity grossly intact. IX, X: Uvula is midline. Phonation is normal. XI: Patient shrugs shoulders and turns head normally. XII: Tongue protrudes in the midline. Sensory and Motor Function: Sensory and motor sensation is grossly normal. Motor: moves all extremities well. Coordination: Gait is normal. Deep Tendon Reflexes: Intact. IMPRESSION Psychiatric admission RECOMMENDATIONS PSYCHIATRIC: Per psychiatrist. MEDICAL: I see no contraindications to participating in facility's activities. MEDICAL PROGNOSIS Good. MEDICAL CONDITION Stable. Dictated by... Unit #: [id number] #: [id number] Patient: ESTHER PINEDOMary MelendezAKeri-Annalisa. for Josephine Johnson/adelia TD: 04/08/2017 05:11 JOB #: [id number] HISTORY AND PHYSICAL Page 1 of 1 X Claudine Cruz HISTORY AND PHYSICAL
--- NOTE | ~2017-04-06 | PN ---
Unit #: [id number] #: [id number] Patient: ANKUR PINEDO [id number] [facility] [address] [place] [address] [id number] MR#: [id number] NAME: ANKUR PINEDO ROOM: [facility] Age: 56 Sex: M Admission Date: 04/07/2017 : 1960 Attending Physician: Madi Barragan M.D. Admitting Physician: Madi Barragan M.D. Primary Care Physician: Josephine Alexis PROGRESS NOTES DATE OF SERVICE 04/08/2017 DISCUSSION Mr. Pinedo is a 56-year-old white male who was seen today. Chart was reviewed and case was discussed with the staff. He has been anxious and withdrawn though has not shown any agitation, irritability, or behavioral problems and has been cooperative with treatment recommendations and has been taking the medications and tolerating them fairly well with no reported side effects. MENTAL STATUS EXAMINATION Middle-aged white male who is casually dressed with fair personal hygiene, appears to be in no acute distress or discomfort. He was awake and alert with impaired attention and concentration. His mood is anxious with congruent affect. His speech is slow and restricted in content. His thought processes were disorganized with some looseness of associations. His insight and judgment remain significantly impaired. TREATMENT PLAN 1. We will continue him on his current medications and treatment protocol. We will monitor his response to the medications and make further adjustments as needed. 2. We will continue to follow up. Dictated by... Josephine Delcid/george TD: 04/08/2017 13:07 JOB #: [id number] Unit #: [id number] #: [id number] Patient: ANKUR PINEDO PROGRESS NOTES Page 1 of 1 X Madi Barragan MD PROGRESS NOTE
--- NOTE | ~2017-04-06 | PN ---
Unit #: [id number] #: [id number] Patient: ANKUR PINEDO [id number] [facility] [address] [place] [address] [id number] MR#: [id number] NAME: ANKUR PINEDO ROOM: [facility] Age: 56 Sex: M Admission Date: 04/07/2017 : 1960 Attending Physician: Madi Barragan M.D. Admitting Physician: Madi Barragan M.D. Primary Care Physician: Josephine Alexis PROGRESS NOTES DATE 04/09/2017 DISCUSSION Mr. Pinedo is a 56-year-old white male who was seen today and chart was reviewed and case was discussed with the staff. He has been anxious, withdrawn and rather seclusive to himself though has not shown any agitation or aggression and has been constantly mentioning that he wants to leave tomorrow because his is having mastectomy, that he needs to be there with her. Meanwhile, he has been taking medications and tolerating them fairly well with no reported side effects. MENTAL STATUS EXAMINATION Middle-aged white male with fair personal hygiene and appears to be in no acute distress or discomfort. He was awake and alert with impaired attention and concentration. His mood was anxious with a congruent affect. He denies any suicidal or homicidal ideation. His insight and judgement remain slightly impaired. TREATMENT PLAN 1. Will continue on his current treatment protocol. Will monitor his response and make further adjustments as needed. 2. Will continue to follow up. Dictated by... Josephine Delcid/jacoby TD: 04/09/2017 18:51 JOB #: [id number] Unit #: [id number] #: [id number] Patient: ANKUR PINEDO PROGRESS NOTES Page 1 of 1 X Madi Barragan MD X PROGRESS NOTE
--- NOTE | ~2017-04-06 | DS ---
Unit #: [id number] #: [id number] Patient: [facility] PINEDO [id number] [facility] [address] [place] [address] [id number] I MR#: [id number] NAME: ANKUR PINEDO ROOM: 78 Age: 56 Sex: M Admission Date: 04/07/2017 : 1960 Discharge Date: 04/10/2017 Attending Physician: Madi Barragan M.D. Primary Care Physician: Gregg Peña M.D. DISCHARGE SUMMARY IDENTIFYING DATA Mr. Pinedo is a 56-year-old , disabled, white male, who is a resident of [place], [place], and is known to us from previous encounter, was self-referred to the hospital. DISCHARGE DIAGNOSES Psychiatric: Alcohol dependence, moderate and acute withdrawals; alcohol-induced mood disorder. Medical: Hypertension, hepatitis C, esophageal varices, history of cerebrovascular accident, history of pancreatitis. Stressors: Moderate psychosocial stressors. HISTORY OF PRESENT ILLNESS Please see initial psychiatric evaluation for details. PAST PSYCHIATRIC HISTORY Please see initial psychiatric evaluation for details. PAST MEDICAL HISTORY Please see initial psychiatric evaluation for details. HOSPITAL COURSE The patient [facility] and was oriented to the hospital environment. Routine p.r.n. medications were initiated and was started on the detox protocol and was closely monitored. He was taking the medications regularly and was tolerating them fairly well and was able to show a decent and therapeutic response and as such, it was decided that he will be discharged home and will continue treatment on an outpatient basis. DISCHARGE CONDITION Stable. PROGNOSIS Fair. Dictated by... Josephine Delcid/manuel TD: 04/10/2017 22:33 JOB #: [id number] Unit #: [id number] #: [id number] Patient: ANKUR PINEDO DISCHARGE SUMMARY Page 1 of 1 X Madi Barragan MD DISCHARGE SUMMARY
== END 2017-04-10 10:20 | DRG 897 ==
LOC: P2S 16:36 → P1E 04-07 08:57
PROC: HZ2ZZZZ Detoxification Services for Substance Abuse Treatment (ICD-10-PCS; principal; 2017-04-07)
DX: F10.239 Alcohol dependence with withdrawal, unspecified (principal); F11.23 Opioid dependence with withdrawal; I85.00 Esophageal varices without bleeding; F10.24 Alcohol dependence with alcohol-induced mood disorder; I10 Essential (primary) hypertension; B19.20 Unspecified viral hepatitis C without hepatic coma; Z86.73 Personal history of transient ischemic attack (TIA), and cerebral infarction without residual deficits; Z88.5 Allergy status to narcotic agent
CPT/HCPCS: 86592

== ENCOUNTER 2017-04-13 18:48 | Inpatient (IN) | payer MEDICARE, OTHER ==
[~2017-04-13] VITALS: Ht 175.3 cm; Wt 99.0 kg
--- NOTE | ~2017-04-13 | A ---
[facility] Nutrition Therapy DATE: 04/15/17 Patient: ANKUR PINEDO Physician: AB Address: [address] [facility] Room/Bed: [address] [place] [address], Zip: [place] [address] Admit Date: 04/14/17 Date of : [birth year] Height: 5 9 Weight: 230 104.4 NUTRITIONAL ASSESSMENT: REASON: 2 NUTRITION RISK PT RE: 9# WEIGHT LOSS PT IS 56 Y.O. MALE ADMITTED FOR ETOH ABUSE, ACUTE PANCREATITIS PMH: CHRONIC ETOH ABUSE, CVA, ESOPHAGEAL VARICES, LIVER CIRRHOSIS, HTN, WITHDRAWAL SEIZURES, GERD, HEP C, PANCREATITIS, AFIB Anthropometrics: 5'8", WT: 210# (PER PT) (95 KG), BMI: 31.9 Labs: BUN: 5, AST: 47, LIPASE: 18 Meds: THIAMINE, THERAPEUTIC FORMULA, PEPCID, ZOFRAN, NACL I/O & Bowel function: Skin Integrity: NO KNOWN SKIN ISSUES Assessment: CHART REVIEWED AND EVENTS NOTED. PT SEEN FOR 2 NUTRITION RISK PT RE: WEIGHT LOSS. PT REPORTS DECREASED PO INTAKE 2' DECREASED APPETITE PAST WEEK D/T ABD PAIN AND N/V. PT REPORTS LOSING ~9# PAST 2 WEEKS, NOTES UBW IS ~220-221#. OF NOTE, PT WAS AT [facility] ON 04/07/17-04/10/17 FOR ETOH WITHDRAWAL SEIZURES. THIS RD ENCOURAGED SMALL FREQUENT MEALS + SUPPLEMENT INTAKE, PT AGREED TO ENSURE CLEAR TID W/MEALS. RD ALSO ENCOURAGED ETOH CESSATION. PT REPORTED NO DIET QUESTIONS AT THIS TIME. RD TO FOLLOW. SEE RECOMMENDATIONS BELOW. Dx: INADEQUATE PROTEIN-ENERGY INTAKE R/T DECREASED APPETITE, CURRENT DIAGNOSIS AEB PT REPORT ABOVE, REPORT OF ~9# WEIGHT LOSS IN PAST 2 WEEKS. Intervention: 1. CLEAR LIQUID DIET 2. ENSURE CLEAR TID W/MEALS Monitoring, Evaluation and Goals: 1. ORAL INTAKE; ADVANCE DIET AND CONSUME/TOLERATE >50% OF MEALS AND SUPPLEMENTS 2. WEIGHTS; PREVENT UNINTENTIONAL WEIGHT LOSS; PROMOTE GRADUAL WEIGHT LOSS TOWARDS HEALTHY BMI 3. LABS; WNL MONITOR ABOVE GOALS Recommendations: 1. PLEASE ORDER MIXED VALDES ENSURE CLEAR TID W/MEALS [facility] Therapy DATE: 04/15/17 Patient: ANKUR PINEDO Physician: AB Address: [address] [place] [address] Room/Bed: [address] [place] [address], Zip: [place] [address] Admit Date: 04/14/17 Date of : [birth year] Height: 5 9 Weight: 230 104.4 2. ONCE MEDICALLY FEASIBLE, ADVANCE DIET TOLERATED TO LOW FAT 2'DX, PMH 3. CONSIDER ADDING 1 MG FOLIC ACID DAILY 2' ETOH ABUSE 4. ENCOURAGE ADEQUATE PO INTAKE RD WILL F/U PER PROTOCOL PT IS MILD/MODERATELY COMPROMISED Respectfully, LEX ARORA MS, RD, LD [facility] Nutrition[facility] Services [facility] cc: client file
--- NOTE | ~2017-04-13 | US5 ---
[facility] A Service of [facility] RADIOLOGY TEXT RESULTS PATIENT: ANKUR PINEDO [facility] [address] : [birth year] UNIT #: [id number] AGE: [address]: Boone Wheeler MD SEX: M ORDER DR: [id number] [place], [place] [address] [id number] I MR#: [id number] Acc #: [id number] NAME: ANKUR PINEDO : 1960 SEX: M STUDY DATE/TIME: 04/20/2017 8:08 UNIT: [facility] ROOM: [facility] STUDY DESCRIPTION: US Abdominal Complete Attending Physician: Boone Wheeler M.D. Ordering Physician: [facility] Primary Care Physician: Gregg Peña M.D. MEDICAL IMAGING REPORT This report is preliminary unless electronic signature is present EXAM Abdominal ultrasound INDICATIONS Generalized abdominal pain for the past month. PROCEDURE German-scale and Doppler imaging of the abdomen COMPARISON CT from 04/13/2017 FINDINGS Visualized portions abdominal aorta unremarkable. Majority is obscured by bowel gas. IVC is patent. Pancreas obscured by bowel gas. The liver has increased in coarsened echotexture and surface nodularity in keeping with cirrhosis. Liver measures 17.3 cm. No visible liver mass on submitted images. Common duct measures 4 mm. Gallbladder wall measures 5 mm. Probable small stones or sludge in the gallbladder. Right kidney measures 11.2 cm, unremarkable. Left kidney measures 10.8 cm. Unremarkable. Spleen measures 13.9 cm. IMPRESSION 1. Cirrhosis. Splenomegaly. 2. No visible liver mass on submitted images. 3. Small stones or sludge in the gallbladder with gallbladder wall thickening. Thickening is nonspecific and may be related to underlying liver disease. Correlate with patient's current symptoms. Dictated by... Joseph Platt M.D. THIS IS AN ELECTRONICALLY VERIFIED REPORT [facility] A Service of [facility] RADIOLOGY TEXT RESULTS PATIENT: ANKUR PINEDO [facility]: [facility] 566 : [birth year] UNIT #: [id number] AGE: [address]: Boone Wheeler MD SEX: M ORDER DR: Joseph Platt M.D. at 04/21/2017 8:27 AM VOLODYMYR/jackson TD: 04/20/2017 15:29 JOB #: [id number] MEDICAL IMAGING REPORT Page 1 of 1 COPY
--- NOTE | ~2017-04-13 | HP ---
Unit #: [id number] #: [id number] Patient: ANKUR PINEDO [id number] [address] [address] [id number] I MR#: [id number] NAME: ANKUR PINEDO ROOM: [address] Age: 56 Sex: M Admission Date: 04/14/2017 : 1960 Attending Physician: Allyssa Mohr M.D. Primary Care Physician: Gregg Peña M.D. HISTORY AND PHYSICAL CHIEF COMPLAINT Alcohol abuse with withdrawal symptoms, and acute pancreatitis. HISTORY This 56-year-old male with cirrhosis secondary to hepatitis and continued alcohol abuse, hypertension, paroxysmal atrial fibrillation, is admitted for alcohol withdrawal and pancreatitis. The patient was [facility] 04/10/2017. At the time of this discharge, he again began abusing alcohol. He states that he drinks about a case a day of beer plus one pint of whiskey. Yesterday had a possibly witnessed seizure and EMS was called. Also, complains of nausea and vomiting and periumbilical pain. He presented to this emergency department late last evening hypertensive, mildly tachycardic, but his initial alcohol level was 328. I currently am seeing him at 2:00 in the morning and he is actively experiencing alcohol withdrawal, hallucinating, seeing bugs, with uncontrollable shaking and tremors. In the ER, he was bolused with a liter of saline and given 40 mg of IV Protonix for an elevated lipase. On examination, he is also tender in the abdomen, mainly in the epigastric region. PAST MEDICAL HISTORY 1. Cirrhosis secondary to hepatitis C and ongoing alcohol abuse. The patient has associated hepatic encephalopathy, and portal hypertension with history of esophageal varices. 2. Hepatitis C. 3. Ongoing alcohol abuse with previous admissions to this facility and to [facility] with history of DTs and alcohol withdrawal seizures. 4. Paroxysmal atrial fibrillation with rapid ventricular response. 5. History of pancreatitis. 6. Essential hypertension. 7. GERD. 8. Depression. 9. Appendectomy. 10. Previous tracheostomy. 11. Nasal surgery. ALLERGIES No known drug allergies. HOME MEDICATIONS Unknown. Will check with [facility]. On the discharge summary from [facility], medications were not dictated. Unit #: [id number] #: [id number] Patient: ANKUR PINEDO FAMILY HISTORY CAD, stroke and cancer. SOCIAL HISTORY The patient lives alone. He currently is drinking a case of beer on a daily basis along with a pint of whiskey daily. He is a lifelong nonsmoker, does not use illicit drugs. REVIEW OF SYSTEMS Notable for hallucinating, alcohol abuse, cirrhosis, hepatitis C, PAF, pancreatitis, hypertension, seizures, depression, above mentioned surgeries. All other systems were reviewed and are otherwise negative. PHYSICAL EXAMINATION GENERAL APPEARANCE: Moderately obese 56-year-old male who is actively shaking. VITAL SIGNS: Temperature 98.2, pulse 107, respirations 18, blood pressure 164/82. O2 saturation is 96% on room air. HEENT: Eyes PERRLA. Extraocular muscles are intact. Pharynx - very poor dentition. NECK: Supple without adenopathy or thyromegaly. CHEST: Clear. CARDIAC: Slightly tachy S1 and S2 without murmur. ABDOMEN: Bowel sounds are present. The patient has generalized abdominal tenderness which localizes more towards the epigastric region with hepatomegaly on exam but no rebound or guarding. No masses. EXTREMITIES: Without clubbing, cyanosis or edema. NEUROLOGIC: The patient is awake, alert. He is oriented. He is actively tremulous and hallucinating. His cranial nerves are intact. He has equal strength throughout. DIAGNOSTIC STUDIES LABORATORY: Admission labs - hematocrit is 38.2, normal white count. Platelet count is 81. Normal coags. SMA-12 - glucose is 186, lipase 172. Acetaminophen and salicylate levels are negligible. Alcohol was 328 at 8:20 p.m. on 04/13/2017. Cardiac markers are negative. Urine tox screen negative. IMAGING: CT scan of the abdomen and pelvis shows cirrhosis, portal hypertension and gallstones. ASSESSMENT 1. Alcohol abuse, now with alcohol withdrawal symptoms: The patient does have a history of withdrawal seizures and DTs. 2. Mild acute pancreatitis secondary to alcohol abuse. 3. Cirrhosis secondary to alcohol abuse and hepatitis C with history of hepatic encephalopathy and portal hypertension with esophageal varices. 4. Essential hypertension. 5. History of paroxysmal atrial fibrillation, currently in a normal Unit #: [id number] #: [id number] Patient: ANKUR PINEDO sinus rhythm. PLANS 1. Start benzos and vitamins. 2. IV fluids and supportive treatment. 3. Recheck labs in the morning and check ammonia level. 4. DVT and gastritis prophylaxis. 5. Obtain home medications. Dictated by Allyssa Mohr M.D. AML/df TD: 04/14/2017 05:04 JOB #: [id number] HISTORY AND PHYSICAL Page 1 of 1 X Allyssa Mohr MD X HISTORY AND PHYSICAL
--- NOTE | ~2017-04-13 | CO ---
Unit #: [id number] #: [id number] Patient: ANKUR PINEDO [id number] [address] [address] [id number] I MR#: [id number] NAME: ANKUR PINEDO ROOM: 566 Age: 56 Sex: M Admission Date: 04/14/2017 : 1960 Attending Physician: Boone Wheeler M.D. Primary Care Physician: Gregg Peña M.D. Consultation Date: 04/15/2017 CONSULTATION REPORT HISTORY OF PRESENT ILLNESS Mr. Pinedo is a 56-year-old gentleman with a history of ongoing alcohol abuse and a history of portal hypertension and hepatic encephalopathy. He was just discharged [facility], and two days later he presented here in alcohol withdrawal symptoms. He has been admitted by the medical service and alcohol withdrawal protocol initiated, and he is stabilizing. However, he did note that he has had two to three days of black tarry stool and today had a small amount of emesis he described as about the size of a silver dollar of bright red blood. He has had a previous upper endoscopy but does not recall the results, but on CT scan, there is evidence of portal hypertension with hepatosplenomegaly and esophageal varices. He was unaware if he had ever had any treatment for his varices. PAST MEDICAL HISTORY 1. Hepatitis C. 2. Alcohol abuse. 3. Cirrhosis with portal hypertension and hepatic encephalopathy. 4. Esophageal varices. 5. Recent admission to [facility]. 6. Atrial fibrillation. 7. Pancreatitis. 8. Hypertension. 9. Reflux. 10. Depression. 11. Appendectomy. 12. Previous tracheostomy. 13. Nasal surgery. ALLERGIES No allergies to medication. MEDICATIONS Documented on the NOV and include: 1. Librium. 2. Lactulose. 3. Norvasc. 4. Multivitamins. 5. Thiamine. 6. Effexor. 7. Pepcid. 8. Ativan. 9. Morphine. 10. Lovenox. Unit #: [id number] #: [id number] Patient: ANKUR PINEDO 11. Zofran. FAMILY HISTORY Coronary artery disease, stroke, and cancer. SOCIAL HISTORY Patient lives alone. He admits to drinking a case of beer and a pint of whiskey daily. Nonsmoker and denies other recreational drugs. REVIEW OF SYSTEMS Patient denies any current hallucinations. He is afebrile and denies any fever or chills. PHYSICAL EXAMINATION GENERAL: He is resting comfortably. He answers questions appropriately. He is awake, alert, oriented, and cooperative. VITAL SIGNS: Temperature is 98.4, pulse 97, respirations 18, and blood pressure 155/68. HEENT: Unremarkable. CARDIAC: Irregular rhythm. LUNGS: Clear. ABDOMEN: He guards in the epigastrium, but there is no localized tenderness, no mass, and no rebound. EXTREMITIES: No edema. NEUROLOGICALLY: Grossly intact. SKIN: No skin rashes or lesions. DIAGNOSTIC STUDIES LABORATORY: Comprehensive metabolic panel today is normal. Amylase and lipase are 28 and 18. C-reactive protein is 328 and his ammonia level is 115. INR is 1.1. White count 4800 with normal differential, hemoglobin 13.1, hematocrit 39.4, and platelets 132,000. Urinalysis was not done. IMAGING: CT of the abdomen and pelvis shows cirrhotic changes and sequelae of portal hypertension, cholelithiasis without evidence of acute cholecystitis, and nonobstructing stone in the right kidney. No other acute findings. ASSESSMENT AND PLAN A 56-year-old gentleman with a history of alcohol abuse, portal hypertension, and hepatic encephalopathy, has had melanotic stools and one episode of throwing up a small amount of bright red blood. There is evidence of esophageal varices on CT. He is hemodynamically stable, and his laboratories are generally unremarkable. Will plan on doing elective EGD to assess the source of his bleeding. The possibility of banding or other methods to control any acute bleeding have been discussed with patient. He understands and agrees to proceed. Dictated by... Josephine Donohue/rizwana TD: 04/15/2017 19:55 JOB #: [id number] Unit #: [id number] #: [id number] Patient: ANKUR PINEDO CONSULTATION REPORT Page 1 of 1 X Juan Manuel Frederick MD CONSULTATION REPORT
--- NOTE | ~2017-04-13 | CO ---
Unit #: [id number] #: [id number] Patient: ANKUR PINEDO [id number] [address] [place], [place] [address] [id number] MR#: [id number] NAME: ANKUR PINEDO ROOM: 566 Age: 56 Sex: M Admission Date: 04/14/2017 : 1960 Attending Physician: Boone Wheeler M.D. Primary Care Physician: Gregg Peña M.D. CONSULTATION REPORT HISTORY OF PRESENT ILLNESS This is a 56-year-old white male with a known history of having cirrhosis secondary to hepatitis and continued alcohol abuse. He has hypertension, history of paroxysmal atrial fibrillation that was noted back in 2010. He has got portal hypertension and history of esophageal varices and hepatic encephalopathy. The patient was admitted for abdominal pain. His examination and his labs indicate acute pancreatitis which he is being treated. He is on alcohol withdrawal protocol. The patient was fairly stable today but then had a short run of atrial fibrillation with rapid ventricular response. Looking back on his history, he was seen by cardiology here at [facility] in 2010 and had an echo which showed an EF of 50% to 55% and also he had a Lexiscan Cardiolite stress test that was normal. The patient was only in the atrial fibrillation briefly but we have been asked to assist with evaluation and management and treatment. On interview and exam, the patient denies any chest pain, pain in his neck, bilateral jaws, shoulders, arms or elbow. He denies any palpitations. No dizziness, presyncope or syncope. He just came in with severe abdominal pain, which was more generalized. The patient was just discharged from rehab about two to three days ago and on the day of admission had six 24 ounce beers. PAST MEDICAL HISTORY 1. Cirrhosis secondary to hepatitis and continued alcohol abuse. 2. History of paroxysmal atrial fibrillation, not on anticoagulation because of alcoholism and liver disease. 3. Hepatic encephalopathy. 4. Portal hypertension and history of esophageal varices. 5. 2010 2D echo - LVEF of 50% to 55% with mild left ventricular hypertrophy, mild mitral regurgitation. 6. 2010 Lexiscan Cardiolite stress test - LVEF of 63%. No ischemia. Normal wall motion. 7. Nonsmoker. PAST SURGICAL HISTORY 1. Appendectomy. 2. Nasal surgery. 3. Epidural x1. HOME MEDICATIONS 1. Effexor 150 mg p.o. in the morning. 2. Prilosec 20 mg p.o. daily. ALLERGIES Unit #: [id number] #: [id number] Patient: ANKUR PINEDO No known drug allergies. SOCIAL HISTORY The patient lives alone. He currently drinks a case of beer on a daily basis along with a pint of whiskey. He is a lifelong nonsmoker and denies any illicit drug abuse. FAMILY HISTORY There is a stroke and cancer in his immediate family members. REVIEW OF SYSTEMS See details in HPI. PHYSICAL EXAMINATION GENERAL: On exam, Mr. Pinedo is a 56-year-old white male in no acute respiratory distress. He is awake, alert. He answers most questions appropriately. He has some poor memory recall. VITAL SIGNS: Currently blood pressure is 137/70, heart rate 74, respirations 18, temperature 97.7, O2 sats 95% on room air. NECK: Trachea midline. No thyromegaly or lymphadenopathy. Normal carotid upstrokes. No jugular venous distention. HEART: S1, S2. Regular rate and rhythm. No clicks, murmurs or rubs. LUNGS: Slightly diminished, otherwise clear. ABDOMEN: Soft, nontender, obese. EXTREMITIES: Pedal pulses are palpable. Trace of pedal edema. DIAGNOSTIC STUDIES LABORATORY: Glucose is 98, BUN 5, creatinine 0.8, eGFR 99.2, sodium 138, potassium 3.4, chloride 101, CO2 30, calcium 3.5, magnesium 2.6, total protein 8.2, albumin 3.9, bili total 1.3, AST 55, ALT 33, alkaline phos. 76. Amylase on admission was 18. On admission, the patient's AST was 60 and his ALT was 34. On admission, his alcohol level was 328. INR is 1.9, WBC 5.5, hemoglobin 12.5, hematocrit 37.3, platelets 156. Initial cardiac enzymes - CK MB 2.0, troponin less than 0.05, INR is 1.9. IMAGING: Chest x-ray on admission - no active disease. CT of the abdomen and pelvis shows no clear acute findings and cirrhosis and quality of portal hypertension and cholelithiasis without any evidence of acute inflammation. CARDIOVASCULAR: EKG shows normal sinus rhythm with ventricular rate 78 beats/minute, poor R wave progression, low voltage in inferior leads. Telemetry shows short bursts of paroxysmal atrial fibrillation. IMPRESSION 1. Acute pancreatitis. 2. Alcohol withdrawal. 3. Paroxysmal atrial fibrillation with rapid ventricular response. 4. Hypertension. 5. Cirrhosis secondary to hepatitis and alcohol abuse. 6. Hepatic encephalopathy. 7. Portal hypertension with esophageal varices. Unit #: [id number] #: [id number] Patient: ANKUR PINEDO 8. 2010 2D echo, LVEF of 50% to 55% with mild mitral regurgitation. Normal stress test back in 2010. 9. Alcohol abuse. 10. Nonsmoker. PLAN 1. Cardiology consult to assist with evaluation and management. 2. Patient had a burst of atrial fibrillation with rapid ventricular response. His potassium is low at 3.4. Will supplement with 40 mEq x1 and will check magnesium level and supplement if needed. 3. Looking back on previous records back in 2010 when he was diagnosed with paroxysmal atrial fibrillation, he was on a beta cherelle. His blood pressure and heart rate are stable so will start on metoprolol 25 mg p.o. twice daily with parameters. 4. As far as any anticoagulation for his paroxysmal atrial fibrillation versus alcohol abuse and history of starting risk of injury, will not start on chronic anticoagulation at this time. Plans are for patient to go to [facility] again for rehabilitation and for his pancreatitis. (1) of the gallbladder is pending. Obtain a 2D echo to re-evaluate LV function and valves. 5. On exam, there are no signs or symptoms of unstable angina or acute congestive heart failure. Patient may need another stress test eventually which can be done as an outpatient. 6. Encouraged the patient to completely quit alcohol abuse. Patient states he really wants to try. He says he is going back to AA and also to rehab. Dictated by... Aneta RicardoRSonia for Josephine Mendoza TD: 04/21/2017 06:55 JOB #: [id number] CONSULTATION REPORT Page 1 of 1 X Veda Hoffman APRN CONSULTATION REPORT
--- NOTE | ~2017-04-13 | CT2 ---
[facility] A Service of [facility] RADIOLOGY TEXT RESULTS PATIENT: ANKUR PINEDO LOCATION: C5 566-01 : 58 UNIT #: [id number] AGE: [address]: Boone Wheeler MD SEX: M ORDER DR: [id number] [facility] [address] [facility]. [place], [place] [address] [id number] I MR#: [id number] Acc #: [id number] NAME: ANKUR PINEDO : 1960 SEX: M STUDY DATE/TIME: 04/13/2017 22:40 UNIT: CEDOF ROOM: [id number] STUDY DESCRIPTION: CT Abd and Pelv W Cont Attending Physician: Boone Wheeler M.D. Ordering Physician: Feliberto Cooper D.O. Primary Care Physician: Gregg Peña M.D. MEDICAL IMAGING REPORT This report is preliminary unless electronic signature is present EXAM CT abdomen and pelvis with contrast. INDICATIONS Generalized abdominal pain for the past 2-3 days. PROCEDURE Contrast-enhanced CT of the abdomen and pelvis. This CT exam was performed with one or more of the following radiation dose reduction techniques: automatic exposure control, adjustment of mA and/or kV according to patient size, and iterative reconstruction. COMPARISON 03/01/2016 FINDINGS Abdomen with contrast: Included lung bases clear. Liver enlarged measuring 20.1 cm with cirrhotic morphology. No liver mass on submitted images. Spleen enlarged measuring 15.7 cm. Small paraesophageal and abdominal varices, recannulated paraumbilical vein, and anterior abdominal wall varices. There is no ascites. Portal vein is patent. 2-3 mm nonobstructing calculus in the right kidney. The adrenal glands and pancreas are unremarkable. There is high-attenuation material in the gallbladder, probably stones. No evidence for acute gallbladder inflammation. The bowel loops are nondilated. Pelvis with contrast: No pelvic mass or fluid. No aggressive appearing bone lesion. IMPRESSION [facility] A Service of [facility] RADIOLOGY TEXT RESULTS PATIENT: ANKUR PINEDO LOCATION: [facility] 566 : 58 UNIT #: [id number] AGE: [address]: Boone Wheeler MD SEX: M ORDER DR: 1. No clearly acute finding. 2. Cirrhosis and sequela of portal hypertension. 3. Cholelithiasis without definitive evidence for acute inflammation. 4. Small nonobstructing calculus in the right kidney. Dictated by... Joseph Platt M.D. THIS IS AN ELECTRONICALLY VERIFIED REPORT Joseph Platt M.D. at 04/14/2017 9:54 PM VOLODYMYR/seble TD: 04/14/2017 13:20 JOB #: [id number] MEDICAL IMAGING REPORT Page 1 of 1 COPY
--- NOTE | ~2017-04-13 | TOC ---
Unit #: [id number] #: [id number] Patient: ANKUR PINEDO [id number] [address] [address] [id number] I MR#: [id number] NAME: ANKUR PINEDO ROOM: [facility] Age: 56 Sex: M Admission Date: 04/14/2017 : 1960 Attending Physician: Boone Wheeler M.D. Primary Care Physician: Gregg Peña M.D. TRANSFER OF CARE SUMMARY PRIMARY DIAGNOSIS Alcohol pancreatitis. SECONDARY DIAGNOSES 1. Acute alcohol withdrawal. 2. Severe gastritis. 3. Gastric ulcers. 4. Helicobacter pylori infection. 5. Charlotte esophagitis. 6. Hepatic encephalopathy. 7. Hypertension. 8. Headache. HOSPITAL COURSE The patient was admitted to the hospital and was given bowel rest, IV fluids, and pain control. Despite rapid improvement of the lipase, the patient's abdominal pain continued and we consulted gastroenterology for an EGD. The EGD showed gastritis, gastric ulcers, and Charlotte esophagitis. The patient's urease test was positive and so he was started on a Prevpac in addition to Carafate and nystatin. The patient continued to have issues with encephalopathy and alcohol withdrawal and was started on Librium p.r.n., Ativan, Xifaxan and lactulose and we are trying to wean the Librium at this time. Overall the patient is clinically improving and can likely go home in one to two days. Final discharge summary will be dictated by the hospitalist taking care of the patient on the day of discharge. Dictated by... Boone Wheeler M.D. GUTIERREZ/yolanda TD: 04/17/2017 13:21 JOB #: [id number] Unit #: [id number] #: [id number] Patient: ANKUR PINEDO TRANSFER OF CARE SUMMARY Page 1 of 1 X Boone Wheeler MD X TRANSFER OF CARE SUMMARY
--- NOTE | ~2017-04-13 | EKG ---
PATIENT: ANKUR PINEDO UNIT #: [id number] Ventricular Rate: 78 BPM Atrial Rate: 78 BPM P-R Interval: 140 ms QRS Duration: 88 ms Q-T Interval: 388 ms QTC Calculation(Bezet): 442 ms P [place]: 12 degrees Calculated R [place]: 22 degrees Calculated T [place]: 43 degrees Diagnosis Line: Normal sinus rhythm Diagnosis Line: Normal ECG Diagnosis Line: When compared with ECG of 16-DEC-2016 16:17, Diagnosis Line: Vent. rate has decreased BY 39 BPM Diagnosis Line: Confirmed by JU ADDISON MD ([id number]) on Diagnosis Line: 04/21/2017 5:04:46 PM INTERPRETING MD: AZAEL RAMIRES
--- NOTE | ~2017-04-13 | CR63 ---
[facility] A Service of [facility] RADIOLOGY TEXT RESULTS PATIENT: ANKUR PINEDO LOCATION: [place] [address] : 58 UNIT #: [id number] AGE: [address]: Boone Wheeler MD SEX: M ORDER DR: [id number] [place] [address] [facility]. [place], [place] [address] [id number] I MR#: [id number] Acc #: [id number] NAME: ANKUR PINEDO : 1960 SEX: M STUDY DATE/TIME: 04/15/2017 15:17 UNIT: [facility] ROOM: [facility] STUDY DESCRIPTION: CR Chest 2 View Attending Physician: Boone Wheeler M.D. Ordering Physician: Boone Wheeler M.D. Primary Care Physician: Gregg Peña M.D. MEDICAL IMAGING REPORT This report is preliminary unless electronic signature is present EXAM Chest, 2 views. CLINICAL HISTORY SOA and chest pain. Symptoms have been present for 2 days. Patient has a history of seizure disorder and tracheostomy. Also with history of essential hypertension. COMMENT Two views of the chest reviewed. Three films submitted. COMPARISON 12/29/2016. FINDINGS The heart size is normal. There is no acute congestive failure. There is no pneumothorax. There is an angular density in the left hemithorax which is unchanged and could be related to some pleural plaque or prior rib trauma. No acute infiltrate is suspected. There is no pleural effusion. There are mild thoracic degenerative changes and there is some flowing osteophyte formation in the lower thoracic spine. IMPRESSION 1. No active disease is seen in the chest. Dictated by... Tri Kebede M.D. THIS IS AN ELECTRONICALLY VERIFIED REPORT [facility] A Service of [facility] RADIOLOGY TEXT RESULTS PATIENT: ANKUR PINEDO LOCATION: [facility] : 58 UNIT #: [id number] AGE: [address]: Boone Wheeler MD SEX: M ORDER DR: Tri Kebede M.D. at 04/16/2017 6:15 PM FE/keeley TD: 04/15/2017 22:58 JOB #: [id number] MEDICAL IMAGING REPORT Page 1 of 1 COPY
--- NOTE | ~2017-04-13 | OR ---
Unit #: [id number] #: [id number] Patient: ANKUR PINEDO [id number] [address] [address] [id number] I MR#: [id number] NAME: ANKUR PINEDO ROOM: 566 Date of Procedure: 04/16/2017 Admission Date: 04/14/2017 Surgeon: Juan Manuel Frederick M.D. : 1960 Attending Physician: Boone Wheeler M.D. Primary Care Physician: Gregg Peña M.D. OPERATIVE REPORT PREOPERATIVE DIAGNOSIS Hematemesis and melena. POSTOPERATIVE DIAGNOSIS Severe alcoholic gastritis and fungal esophagitis. PROCEDURE PERFORMED Esophagogastroduodenoscopy with biopsy x4. ANESTHESIA Monitored anesthesia. INDICATIONS FOR PROCEDURE Mr. Pinedo is a 56-year-old gentleman, who was admitted to the hospital with a diagnosis of alcohol withdrawal and hepatic encephalopathy. The patient complained of melanotic stools for several days, and one episode of hematemesis. Even though he was hemodynamically stable and his blood count was stable, his CT scan of the abdomen was concerning for esophageal varices. Due to the history of hematemesis and melena, EGD was indicated to rule out a bleeding source. DESCRIPTION OF PROCEDURE The patient was transported from his hospital room to the endoscopy suite. After appropriate monitoring and positioning, a bite block was placed and he was sedated by the nurse senior technical editor. The endoscope was passed through the oral cavity into the upper esophagus. Upon visualizing the esophagus, he had multiple white plaques consistent with fungal esophagitis. As I got down to the distal esophagus, the GE junction was well demarcated at 40 cm from the incisors. There was no hiatal hernia. No Alfred mucosa. No esophagitis, and no esophageal varices. As I entered and insufflated the stomach, he had severe alcoholic gastritis, but there was no blood in the stomach and on close visualization of all the mucosal surfaces, there was no ulceration and I did not appreciate any gastric varices. CLOtest was taken from the antrum, and in the upper fundus, biopsies from the mucosa were taken to evaluate pathologically. I passed through the pylorus to the duodenum, down to the third portion was normal. As we came back in a retrograde fashion, again I evaluated all mucosal surfaces. Retroflexed the scope above the incisura, and except for the severe gastritis, there was no evidence of any active or recent bleeding. I could not visualize any ulceration, any gastric varices or a Dottie-Jackson tear. Again, in retrograde visualization, the esophagus was closely evaluated and no esophageal varices were seen. A biopsy to confirm the Unit #: [id number] #: [id number] Patient: ANKUR PINEDO fungal esophagitis was obtained. Larynx was visualized and was normal. The patient tolerated the procedure well and was transported to recovery in stable condition. The patient will be readmitted to his hospital room for ongoing management and evaluation. Dictated by... Josephine Donohue/manuel TD: 04/17/2017 03:09 JOB #: [id number] OPERATIVE REPORT Page 1 of 1 X Juan Manuel Frederick MD X PROCEDURE OPERATIVE NOTE
--- NOTE | ~2017-04-13 | DS ---
Unit #: [id number] #: [id number] Patient: ANKUR PINEDO [id number] [address] [address] [id number] I MR#: [id number] NAME: ANKUR PINEDO ROOM: 566 Age: 56 Sex: M Admission Date: 04/14/2017 : 1960 Discharge Date: 04/21/2017 Attending Physician: Boone Wheeler M.D. Primary Care Physician: Gregg Peña M.D. DISCHARGE SUMMARY PRIMARY DIAGNOSIS Abdominal pain secondary to gastric ulcer disease. SECONDARY DIAGNOSES Gastric ulcer disease, severe gastritis, Charlotte esophagitis, paroxysmal atrial fibrillation, hypokalemia, anemia, hepatic encephalopathy, alcoholic cirrhosis, alcoholic pancreatitis, hypertension, Helicobacter pylori infection, acute alcohol withdrawal and a single day of nonspecific headache, resolved prior to discharge. HOSPITAL COURSE The patient was admitted to the hospital with the above multiple medical issues and was treated with a titrating dose of Librium, pain medication, antifungals, and antacid medications as well as antibiotics for his H pylori, which he will continue at discharge. He will continue on pain medication for the next week and then should stop it after that point. He will continue on lactulose and Xifaxan if his insurance will allow him to get both of these for hepatic encephalopathy. He will continue on metoprolol and potassium supplementation for his atrial fibrillation as well as a daily baby aspirin. The patient passed physical therapy evaluations prior to discharge. He refuses to be considered for transfer directly to [facility] for continued counseling on his alcohol abuse. He was given a list of outpatient resources for alcohol abstinence, although it is unclear to me how committed he is to just staying off alcohol. He was given prescriptions for all new medications. Consultants included Dr. Keenan with Cardiology for atrial fibrillation; Dr. Kenny Chavez with General Surgery for his abdominal pain. Procedures include an EGD, which was done on 04/16/2017. Imaging includes a total abdominal ultrasound, chest x-ray, CT of the abdomen and pelvis. DISCHARGE DISPOSITION To home. DISCHARGE STATUS Stable. DISCHARGE ACTIVITY With a four-point cane at all times. If the patient is able to stay sober, he should consider an outpatient evaluation with Orthopedic Surgery for his reported history of unilateral knee instability. Unit #: [id number] #: [id number] Patient: ANKUR PINEDO DISCHARGE DIET The patient is advised to have a low-fat diet for the next 7 days and then advance as tolerated. DISCHARGE FOLLOWUP Follow up with his PCP in 1 to 4 weeks and he can follow up with Dr. Keenan with Cardiology per her recommendations for his atrial fibrillation. DISCHARGE MEDICATIONS Lactulose 10 g p.o. b.i.d., Rifaximin 550 mg p.o. b.i.d., Effexor 150 mg p.o. daily, Diflucan 200 mg p.o. daily for 5 days, Norvasc 5 mg p.o. daily, Lopressor 25 mg p.o. b.i.d., clarithromycin 500 mg p.o. b.i.d. for the next 9 days for H pylori, multivitamin with iron 1 tablet p.o. daily, oxycodone 5 mg 1 to 2 tablets p.o. q.4 hours p.r.n. pain, amoxicillin 1000 mg p.o. b.i.d. for the next 9 days for H pylori, omeprazole 40 mg p.o. once daily, potassium chloride 20 mEq p.o. daily, and aspirin 81 mg p.o. daily. Dictated by... Josephine Martin/manuel TD: 04/23/2017 07:46 JOB #: [id number] DISCHARGE SUMMARY Page 1 of 1 X Boone Wheeler MD X DISCHARGE SUMMARY
[2017-04-13 20:51] LABS: BASOPHIL% 0.5 % (0-2.5); EOSINOPHIL% 0.9 % (0.0-7.0); HEMATOCRIT 38.2 % (38.0-50.0); HEMOGLOBIN 12.7 gm/dL (13.0-16.0); LYMPHOCYTE# 1.8 X10e3 (1.0-3.5); LYMPHOCYTE% 45.3 % (17.0-45.0); MEAN CELL VOLUME 94.4 FL (83-96); MEAN CORPUSCULAR HEMOGLOBIN 31.4 PG (28-34); MEAN CORPUSCULAR HGB CONC 33.2 g/dL (30-36); MEAN PLATELET VOLUME 8.3 FL (6.5-11.5); MONOCYTE# 0.5 X10e3 (0-1.0); MONOCYTE% 13.5 % (3.0-12.0); NEUTROPHIL# 1.6 X10e3 (1.5-7.1); NEUTROPHIL% 39.8 % (40-75); PLATELET COUNT 81 X10e3 (140-420); RED BLOOD COUNT 4.05 X10e (3.90-5.60); WHITE BLOOD COUNT 4.1 X10e3 (4.0-10.5)
[2017-04-13 20:59] LABS: PARTIAL THROMBOPLASTIN TIME 25.2 SECONDS (23.5-31.3); PROTHROMBIN TIME (PATIENT) 11.3 SECONDS (10.0-11.7)
[2017-04-13 21:04] LABS: ALBUMIN SERUM 3.8 g/dL (3.5-5.0); ALKALINE PHOSPHATASE 65 U/L (32-92); ALT (SGPT) 28 U/L (10-40); AST (SGOT) 41 U/L (10-42); BILIRUBIN, DIRECT 0.2 mg/dL (0.0-0.2); BILIRUBIN,INDIRECT 0.6 mg/dL (0.0-0.9); BILIRUBIN,TOTAL 0.8 mg/dL (0.2-2.0); BLOOD UREA NITROGEN 5 mg/dL (9-23); BUN/CREATININE RATIO 6.25; CALCIUM SERUM 8.5 mg/dL (8.4-10.2); CARBON DIOXIDE 26 mmol/L (22-31); CHLORIDE 111 mmol/L (100-111); CREATININE SERUM 0.8 mg/dL (0.6-1.4); GLOM FILT RATE Estimated 99.2 mL/min (>60); GLUCOSE FASTING 186 mg/dL (70-110); POTASSIUM 3.9 mmol/L (3.5-5.1); PROTEIN TOTAL SERUM 7.7 g/dL (6.0-8.3); SALICYLATE <4.0 mg/dL; SODIUM 144 mmol/L (135-145)
[2017-04-13 21:07] LABS: ACETAMINOPHEN <10 ug/mL
[2017-04-13 21:08] LABS: DIFF IND YES
[2017-04-13 21:10] LABS: ALCOHOL BLOOD 328 mg/dL (0)
[2017-04-13 21:13] LABS: PLATELET ESTIMATE DECREASED (NORMAL)
[2017-04-13 21:31] LABS: POC - TROPONIN <0.05 ng/mL (<=0.05)
[2017-04-13 23:41] LABS: AMPHETAMINE NEG (NEG); BARBITURATES NEG (NEG); BENZODIAZEPINES NEG (NEG); COCAINE NEG (NEG); MARIJUANA NEG (NEG); OPIATES NEG (NEG); TRICYCLIC ANTIDEPRESSANTS NEG (NEG); U METHADONE NEG (NEG)
[2017-04-14] MEDS ORDERED: PRILOSEC PO (09:44)
[2017-04-14] MEDS ORDERED: EFFEXOR PO (09:44)
[2017-04-14] MEDS ORDERED: PATIENT'S PHARMACY (09:44)
[2017-04-14 15:14] LABS: BASOPHIL% 0.4 % (0-2.5); EOSINOPHIL# 0.1 X10e3 (0-0.7); EOSINOPHIL% 1.8 % (0.0-7.0); HEMATOCRIT 36.2 % (38.0-50.0); LYMPHOCYTE# 1.2 X10e3 (1.0-3.5); LYMPHOCYTE% 41.8 % (17.0-45.0); MEAN CELL VOLUME 93.2 FL (83-96); MEAN CORPUSCULAR HGB CONC 33.2 g/dL (30-36); MEAN PLATELET VOLUME 7.5 FL (6.5-11.5); MONOCYTE# 0.4 X10e3 (0-1.0); MONOCYTE% 13.6 % (3.0-12.0); NEUTROPHIL# 1.2 X10e3 (1.5-7.1); NEUTROPHIL% 42.4 % (40-75); PLATELET COUNT 94 X10e3 (140-420); RED BLOOD COUNT 3.89 X10e (3.90-5.60); RED CELL DISTRIBUTION WIDTH 15.3 % (11.0-15.5); WHITE BLOOD COUNT 2.8 X10e3 (4.0-10.5)
[2017-04-14 15:18] LABS: DIFF IND YES
[2017-04-14 15:44] LABS: BUN/CREATININE RATIO 8.33; CALCIUM SERUM 8.3 mg/dL (8.4-10.2); CREATININE SERUM 0.6 mg/dL (0.6-1.4); GLOM FILT RATE Estimated 111.7 mL/min (>60); POTASSIUM 3.5 mmol/L (3.5-5.1)
[2017-04-14 16:00] LABS: ANISOCYTOSIS MOD; PLATELET ESTIMATE DECREASED (NORMAL); POIKILOCYTOSIS SL
[2017-04-15 05:43] LABS: HEMATOCRIT 39.4 % (38.0-50.0); HEMOGLOBIN 13.1 gm/dL (13.0-16.0); MEAN CELL VOLUME 93.7 FL (83-96); MEAN CORPUSCULAR HEMOGLOBIN 31.1 PG (28-34); MEAN CORPUSCULAR HGB CONC 33.1 g/dL (30-36); MEAN PLATELET VOLUME 7.6 FL (6.5-11.5); RED BLOOD COUNT 4.2 X10e (3.90-5.60); RED CELL DISTRIBUTION WIDTH 15.4 % (11.0-15.5)
[2017-04-15 05:46] LABS: WHITE BLOOD COUNT 4.8 X10e3 (4.0-10.5)
[2017-04-15 06:00] LABS: INR 1.1; PARTIAL THROMBOPLASTIN TIME 27.8 SECONDS (23.5-31.3); PROTHROMBIN TIME (PATIENT) 11.7 SECONDS (10.0-11.7)
[2017-04-15 06:16] LABS: ALBUMIN SERUM 3.8 g/dL (3.5-5.0); BUN/CREATININE RATIO 6.25; CALCIUM SERUM 8.7 mg/dL (8.4-10.2); CREATININE SERUM 0.8 mg/dL (0.6-1.4); GLOM FILT RATE Estimated 99.2 mL/min (>60); POTASSIUM 3.7 mmol/L (3.5-5.1); PROTEIN TOTAL SERUM 7.9 g/dL (6.0-8.3)
[2017-04-16 06:29] LABS: HEMATOCRIT 41.2 % (38.0-50.0); HEMOGLOBIN 13.8 gm/dL (13.0-16.0); MEAN CELL VOLUME 93.8 FL (83-96); MEAN CORPUSCULAR HEMOGLOBIN 31.4 PG (28-34); MEAN CORPUSCULAR HGB CONC 33.4 g/dL (30-36); MEAN PLATELET VOLUME 7.6 FL (6.5-11.5); RED BLOOD COUNT 4.39 X10e (3.90-5.60); RED CELL DISTRIBUTION WIDTH 15.2 % (11.0-15.5); WHITE BLOOD COUNT 7.2 X10e3 (4.0-10.5)
[2017-04-16 07:24] LABS: ALBUMIN SERUM 3.8 g/dL (3.5-5.0); BILIRUBIN,TOTAL 1.2 mg/dL (0.2-2.0); BUN/CREATININE RATIO 7.5; CALCIUM SERUM 8.5 mg/dL (8.4-10.2); CREATININE SERUM 0.8 mg/dL (0.6-1.4); GLOM FILT RATE Estimated 99.2 mL/min (>60); MAGNESIUM 1.7 mg/dL (1.6-3.0); PHOSPHOROUS 2.3 mg/dL (2.5-4.6); POTASSIUM 4.2 mmol/L (3.5-5.1); PROTEIN TOTAL SERUM 7.7 g/dL (6.0-8.3)
[2017-04-17 08:49] LABS: HEMATOCRIT 39.5 % (38.0-50.0); HEMOGLOBIN 13.3 gm/dL (13.0-16.0); MEAN CELL VOLUME 93.2 FL (83-96); MEAN CORPUSCULAR HEMOGLOBIN 31.3 PG (28-34); MEAN CORPUSCULAR HGB CONC 33.6 g/dL (30-36); RED BLOOD COUNT 4.24 X10e (3.90-5.60); RED CELL DISTRIBUTION WIDTH 15.3 % (11.0-15.5); WHITE BLOOD COUNT 8.5 X10e3 (4.0-10.5)
[2017-04-17 09:46] LABS: ALBUMIN SERUM 3.9 g/dL (3.5-5.0); BILIRUBIN,TOTAL 1.3 mg/dL (0.2-2.0); CALCIUM SERUM 8.4 mg/dL (8.4-10.2); GLOM FILT RATE Estimated 83.2 mL/min (>60); MAGNESIUM 1.8 mg/dL (1.6-3.0); PHOSPHOROUS 2.6 mg/dL (2.5-4.6); POTASSIUM 3.7 mmol/L (3.5-5.1); PROTEIN TOTAL SERUM 8.2 g/dL (6.0-8.3)
[2017-04-18 06:53] LABS: HEMATOCRIT 39.1 % (38.0-50.0); MEAN CELL VOLUME 93.6 FL (83-96); MEAN CORPUSCULAR HEMOGLOBIN 31.1 PG (28-34); MEAN CORPUSCULAR HGB CONC 33.2 g/dL (30-36); MEAN PLATELET VOLUME 7.6 FL (6.5-11.5); RED BLOOD COUNT 4.17 X10e (3.90-5.60); RED CELL DISTRIBUTION WIDTH 15.4 % (11.0-15.5); WHITE BLOOD COUNT 6.5 X10e3 (4.0-10.5)
[2017-04-18 07:56] LABS: BUN/CREATININE RATIO 11.25; CALCIUM SERUM 8.1 mg/dL (8.4-10.2); CREATININE SERUM 0.8 mg/dL (0.6-1.4); GLOM FILT RATE Estimated 99.2 mL/min (>60); MAGNESIUM 1.9 mg/dL (1.6-3.0); POTASSIUM 4.3 mmol/L (3.5-5.1)
[2017-04-19 01:38] LABS: URINE APPEARANCE CLEAR; URINE BILIRUBIN NEG (NEG); URINE BLOOD NEG (NEG); URINE COLOR YELLOW; URINE GLUCOSE NEG (NEG); URINE KETONE NEG (NEG); URINE LEUKOCYTE ESTERASE NEG (NEG); URINE NITRATE NEG (NEG); URINE PROTEIN NEG (NEG); URINE UROBILINOGEN 0.2 MG/DL (NEG)
[2017-04-19 01:41] LABS: CULTURE INDICATED? NO
[2017-04-20 05:33] LABS: HEMATOCRIT 37.3 % (38.0-50.0); HEMOGLOBIN 12.5 gm/dL (13.0-16.0); MEAN CELL VOLUME 92.7 FL (83-96); MEAN CORPUSCULAR HGB CONC 33.5 g/dL (30-36); MEAN PLATELET VOLUME 7.3 FL (6.5-11.5); RED BLOOD COUNT 4.02 X10e (3.90-5.60); RED CELL DISTRIBUTION WIDTH 15.4 % (11.0-15.5); WHITE BLOOD COUNT 5.5 X10e3 (4.0-10.5)
[2017-04-20 06:15] LABS: BUN/CREATININE RATIO 6.25; CALCIUM SERUM 8.5 mg/dL (8.4-10.2); CREATININE SERUM 0.8 mg/dL (0.6-1.4); GLOM FILT RATE Estimated 99.2 mL/min (>60); POTASSIUM 3.4 mmol/L (3.5-5.1)
[2017-04-21 07:15] LABS: BUN/CREATININE RATIO 7.77; CREATININE SERUM 0.9 mg/dL (0.6-1.4); GLOM FILT RATE Estimated 94.5 mL/min (>60); PHOSPHOROUS 4.6 mg/dL (2.5-4.6); POTASSIUM 3.9 mmol/L (3.5-5.1)
[2017-04-21] MEDS ORDERED: CHRONULAC10 GM/15 M PO (11:55)
[2017-04-21] MEDS ORDERED: DIFLUCAN200 MG PO (11:57)
[2017-04-21] MEDS ORDERED: XIFAXAN550 MG PO (11:57)
[2017-04-21] MEDS ORDERED: NORVASC PO (11:58)
[2017-04-21] MEDS ORDERED: CLARITHROMYCIN500 MG PO (11:58)
[2017-04-21] MEDS ORDERED: METOPROLOL TAR25 MG PO (11:58)
[2017-04-21] MEDS ORDERED: MAXIMUM DAILY1 EACH PO (12:01)
[2017-04-21] MEDS ORDERED: AMOXICILLIN PO (12:02)
[2017-04-21] MEDS ORDERED: ROXICODONE5 MG PO (12:02)
[2017-04-21] MEDS ORDERED: K-DUR20 ME2 PO (12:03)
[2017-04-21] MEDS ORDERED: ASPIRIN81 M2 PO (12:03)
== END 2017-04-21 16:26 | disposition home or self-care (01) | DRG 896 ==
LOC: CED 18:48 → CEDOF 04-14 02:01 → CED 04-14 02:01 → CEDOF 04-14 02:15 → C5C 04-14 02:15 → CEDOF 04-14 08:35 → C5C 04-14 16:18
PROVIDERS: Emergency Medicine; Internal Medicine; Specialist
PROC: 0DB78ZX Excision of Stomach, Pylorus, Via Natural or Artificial Opening Endoscopic, Diagnostic (ICD-10-PCS; 2017-04-16)
PROC: 0DB58ZX Excision of Esophagus, Via Natural or Artificial Opening Endoscopic, Diagnostic (ICD-10-PCS; 2017-04-16 16:30)
PROC: B246YZZ Ultrasonography of Right and Left Heart using Other Contrast (ICD-10-PCS; principal; 2017-04-20)
DX: F10.239 Alcohol dependence with withdrawal, unspecified (principal); K85.20 Alcohol induced acute pancreatitis without necrosis or infection; K76.6 Portal hypertension; B37.81 Candidal esophagitis; I48.0 Paroxysmal atrial fibrillation; K29.20 Alcoholic gastritis without bleeding; K70.30 Alcoholic cirrhosis of liver without ascites; Y90.8 Blood alcohol level of 240 mg/100 ml or more; I10 Essential (primary) hypertension; Z90.49 Acquired absence of other specified parts of digestive tract; Z82.3 Family history of stroke; Z80.9 Family history of malignant neoplasm, unspecified; Z82.49 Family history of ischemic heart disease and other diseases of the circulatory system; K72.90 Hepatic failure, unspecified without coma; R19.7 Diarrhea, unspecified
CPT/HCPCS: 36415; 71020; 74177; 76700; 80048; 80053; 80076; 80307; 81003; 82140; 82150; 82553; 83690; 83735; 84100; 84443; 84484; 85025; 85027; 85610; 85730; 87040; 87077; 87086; 88305; 88312; 93005; 93306; 96361; 96374; 97116; 97163; 97167; 97535; 99285; C9113; G0480; G8978-GP; G8979-GP; G8987-GO; G8988-GO; G8989-GO; J1650; J2060; J2250; J2270; J2405; J3475; Q9967

== ENCOUNTER 2017-04-27 22:00 | Inpatient (IN) | payer MEDICARE, OTHER ==
[~2017-04-27] VITALS: Ht 170.2 cm; Wt 90.7 kg
--- NOTE | ~2017-04-27 | PN ---
Unit #: [id number] #: [id number] Patient: ANKUR PINEDO [id number] [facility] [address] [place] [address] [id number] I MR#: [id number] NAME: ANKUR PINEDO ROOM: [facility] Age: 56 Sex: M Admission Date: 04/28/2017 : 1960 Attending Physician: Madi Barragan M.D. Admitting Physician: Madi Barragan M.D. Primary Care Physician: Josephine Alexis PROGRESS NOTES DATE 05/02/2017 DISCUSSION Mr. Pinedo is a 56-year-old white male who was seen today and chart was reviewed and case was discussed with the staff. He has been doing fairly well with no agitation, irritability and has been cooperative with treatment recommendations and has been taking medications and tolerating them fairly well with no reported side effects. MENTAL STATUS EXAMINATION Middle-aged white male who was casually dressed with fair personal hygiene. He was awake and alert on interactions with intact orientation. His mood was anxious with congruent affect. He denies any suicidal or homicidal ideation. His insight and judgement remains slightly impaired. TREATMENT PLAN 1. Will continue his current medications and treatment protocol. Will monitor his response and make further adjustments as needed. 2. Will continue to follow up. Dictated by... Josephine Delcid/jacoby TD: 05/02/2017 23:15 JOB #: [id number] PEAAMAIRANI PROGRESS NOTES Page 1 of 1 X Madi Barragan MD X PROGRESS NOTE
--- NOTE | ~2017-04-27 | HP ---
Unit #: [id number] #: [id number] Patient: ANKUR PINEDO [id number] [facility] [address] [place] [address] [id number] I MR#: [id number] NAME: ANKUR PINEDO ROOM: 74 Age: 56 Sex: M Admission Date: 04/28/2017 : 1960 Attending Physician: Madi Barragan M.D. Admitting Physician: Madi Barragan M.D. Primary Care Physician: Gregg Peña M.D. HISTORY AND PHYSICAL Ankur is a 56-year-old admitted to [facility] because of his continued abuse of alcohol. He has had numerous admissions to this facility. Patient was seen and H and P dated 04/07/17 was reviewed. This is current. No changes. Please see H and P dated 04/07/17. Dictated by... Claudine Cruz P.A.-C. for Josephine Johnson/jacoby TD: 04/28/2017 15:10 JOB #: [id number] HISTORY AND PHYSICAL Page 1 of 1 X Claudine Cruz HISTORY AND PHYSICAL
--- NOTE | ~2017-04-27 | PN ---
Unit #: [id number] #: [id number] Patient: ANKUR PINEDO [id number] [facility] [address] [place] [address] [id number] I MR#: [id number] NAME: ANKUR PINEDO ROOM: [facility] Age: 56 Sex: M Admission Date: 04/28/2017 : 1960 Attending Physician: Madi Barragan M.D. Admitting Physician: Madi Barragan M.D. Primary Care Physician: Josephine Alexis PROGRESS NOTES DATE 04/29/2017 DISCUSSION Mr. Pinedo is a 56-year-old white male who was seen today and chart was reviewed and case was discussed with the staff. He has been anxious, withdrawn and rather seclusive to himself. Meanwhile, he has been cooperative with treatment recommendations and has been taking medications and tolerating them fairly well with no reported side effects. MENTAL STATUS EXAMINATION Middle-aged white male who was casually dressed with fair personal hygiene and appears to be in no acute distress or discomfort. He was awake and alert with intact orientation. His mood was anxious with congruent affect. He denies any suicidal or homicidal ideation. His insight and judgement remains slightly impaired. TREATMENT PLAN 1. Will continue on his current medications and treatment protocol. Will monitor his response to the medications and make further adjustments as needed. 2. Will continue to follow up. Dictated by... Josephine Delcid/jacoby TD: 04/29/2017 17:52 JOB #: [id number] Unit #: [id number] #: [id number] Patient: ANKUR PINEDO PROGRESS NOTES Page 1 of 1 X Madi Barragan MD X PROGRESS NOTE
--- NOTE | ~2017-04-27 | PN ---
Unit #: [id number] #: [id number] Patient: ANKUR PINEDO [id number] [facility] [address] [place] [address] [id number] I MR#: [id number] NAME: ANKUR PINEDO ROOM: [facility] Age: 56 Sex: M Admission Date: 04/28/2017 : 1960 Attending Physician: Madi Barragan M.D. Admitting Physician: Madi Barragan M.D. Primary Care Physician: Josephine Alexis NOTES DATE OF SERVICE 05/01/2017 DISCUSSION Mr. Pinedo is a 56-year-old white male who was seen today. Chart was reviewed and case was discussed with the staff. He has been anxious, withdrawn, and rather seclusive to himself. Meanwhile, he has been cooperative with the treatment recommendations and has been taking the medications and tolerating them fairly well with no reported side effects. MENTAL STATUS EXAMINATION A middle-aged white male who is casually dressed with fair personal hygiene, appears to be in no acute distress or discomfort. He was awake and alert with impaired attention and concentration. His mood is anxious with congruent affect. His speech is slow and goal-directed. He denies any suicidal or homicidal ideations and also denies any auditory or visual hallucinations. His insight and judgment remain slightly impaired. TREATMENT PLAN 1. We will continue him on his current medications and treatment protocol. We will monitor his response to the medications and make further adjustments as needed. 2. We will continue to follow up. Dictated by... Josephine Delcid/george TD: 05/01/2017 08:17 JOB #: [id number] Unit #: [id number] #: [id number] Patient: ANKUR PINEDO PROGRESS NOTES Page 1 of 1 X Madi Barragan MD PROGRESS NOTE
--- NOTE | ~2017-04-27 | PA ---
Unit #: [id number] #: [id number] Patient: ANKUR FREEMAN [id number] [facility] [address] [place] [address] [id number] I MR#: [id number] NAME: ANKUR FREEMAN ROOM: P174 Age: 56 Sex: M Admission Date: 04/28/2017 : 1960 Date of Assessment: 04/28/2017 Attending Physician: Madi Barragan M.D. Admitting Physician: Madi Barragan M.D. Primary Care Physician: Gregg Peña M.D. PSYCHIATRIC ASSESSMENT DATE OF SERVICE 04/28/2017. IDENTIFYING DATA Mr. Freeman is a 56-year-old disabled white male, who is a resident of [place], [place], and is very well known to us from previous multiple encounters and was transferred to us from [facility] Emergency Room, where he was taken with blood alcohol level of 0.270. CHIEF COMPLAINT "I'm just fed up and sick of this shit." HISTORY OF PRESENT ILLNESS Mr. Freeman is a 56-year-old white male, who took himself to the hospital stating that he tried to harm himself by running his face into something and reports that he is just fed up "sick of this shit." He reports that he is tired of sick of drinking and stated that he is getting old. When I asked about suicidal ideation, the patient stated "I just want to get help." The patient avoided questions and stated that he has been drinking in the last 24 hours and reports that he has been drinking up to a case of 24 beers on daily basis and does report increasing depression, anxiety, irritability, restlessness, significant feelings of hopelessness and helplessness, and some vague suicidal ideation and was seen to be in distress or discomfort, and danger to himself and as such, recommendation for inpatient level of care for safety and stabilization was made and the patient was transferred to us. SUBSTANCE ABUSE HISTORY The patient reports lifelong history of alcohol dependence as he has been drinking for almost 40 years and reports that he has been drinking a case of 24 beers on daily basis, but denies any other substance abuse issues. PAST PSYCHIATRIC HISTORY The patient has had history of numerous inpatient psychiatric and chemical dependency treatment and has been hospitalized at [facility]] and several other facilities and has done long-term rehab level of care, but has not been able to achieve any sobriety. PAST MEDICAL HISTORY Hypertension, hepatitis C, esophageal varices, history of pancreatitis, cirrhosis of the liver. ALLERGIES Unit #: [id number] #: [id number] Patient: AKNUR FREEMAN No known medication allergies. PERSONAL AND SOCIAL HISTORY A 56-year-old white male, who reports that he is single, unemployed, disabled, and lives alone and has poor social support system. MENTAL STATUS EXAMINATION Young white male, who was casually dressed with fair personal hygiene, appears to be in no acute distress or discomfort. He was awake and alert on interaction with intact orientation to time, place, and person. His mood was anxious and depressed with a congruent affect. His speech was slow and goal directed. He reports having suicidal ideations, but denies any homicidal ideations, and also denies any auditory or visual hallucinations. His insight and judgment remain significantly impaired. DIAGNOSTIC IMPRESSION Psychiatric: Alcohol dependence, moderate, in acute withdrawals; alcohol-induced mood disorder. Medical: Hypertension, hepatitis C, esophageal varices, history of pancreatitis, and cirrhosis of the liver. Stressors: Moderate psychosocial stressors. TREATMENT PLAN 1. The patient has presented with history of mood disorder and substance abuse and has been decompensating and will need inpatient hospitalization for detoxification, safety, and stabilization. We will start him back on his home medications. We will adjust the medications and monitor response. 2. Supportive therapy was provided to the patient. 3. Safe, structured, and nourishing environment will be reported. ESTIMATED LENGTH OF STAY 5 to 7 days. ABILITY TO HELP SELF Limited. WILLINGNESS TO HELP SELF The patient appears to be willing to help self. STRENGTHS 1. Communicative. 2. Cooperative. PROBLEMS 1. Chronic dysphoric symptoms. 2. Chronic chemical dependency. 3. Poor social support system. DISCHARGE CRITERIA This will be contingent upon the patient's ability to show resolution of his depression and anxiety and his ability to stay safe to himself, particularly after discharge from the hospital. Dictated by... Madi Barragan M.D. IAA/modl Unit #: [id number] #: [id number] Patient: ANKUR FREEMAN TD: 04/29/2017 06:50 JOB #: [id number] PSYCHIATRIC ASSESSMENT Page 1 of 1 X Madi Barragan MD PSYCHIATRIC ASSESSMENT
--- NOTE | ~2017-04-27 | PN ---
Unit #: [id number] #: [id number] Patient: ANKUR FREEMAN [id number] [facility] [address] [place] [address] [id number] MR#: [id number] NAME: ANKUR FREEMAN ROOM: [facility] Age: 56 Sex: M Admission Date: 04/28/2017 : 1960 Attending Physician: Madi Barragan M.D. Admitting Physician: Madi Barragan M.D. Primary Care Physician: Josephine Alexis PROGRESS NOTES DATE OF SERVICE 04/30/2017 DISCUSSION Mr. Freeman is a 56-year-old white male with alcohol dependence who was seen today. Chart was reviewed and case was discussed with the staff. He was seen to be anxious, withdrawn, unkempt, disheveled, lying in his bed. He reported that he is not feeling good and appears to be actively detoxing and does appear to be in some distress and discomfort and has to be encouraged to get up for breakfast. Meanwhile, he has been taking the medications and tolerating them fairly well with no reported side effects. MENTAL STATUS EXAMINATION Middle-aged white male who is casually dressed with fair personal hygiene, appears to be in no acute distress or discomfort. He was awake and alert on interaction with intact orientation. His mood is anxious with congruent affect. Speech is slow and goal-directed. He denies any suicidal or homicidal ideations and also denies any auditory or visual hallucinations. His insight and judgment remain slightly impaired. TREATMENT PLAN 1. We will continue him on his current medications and treatment protocol. We will monitor his response to the medications and make further adjustments as needed. 2. We will continue to follow up. Dictated by... Madi Barragan M.D. IAA/bzg TD: 04/30/2017 08:36 JOB #: [id number] Unit #: [id number] #: [id number] Patient: ANKUR FREEMAN PROGRESS NOTES Page 1 of 1 X Madi Barragan MD X PROGRESS NOTE
--- NOTE | ~2017-04-27 | DS ---
Unit #: [id number] #: [id number] Patient: [facility] PINED[facility] [id number] [facility] [place] [address] [id number] I MR#: [id number] NAME: ANKUR PINEDO ROOM: 74 Age: 56 Sex: M Admission Date: 04/28/2017 : 1960 Discharge Date: Attending Physician: Madi Barragan M.D. Primary Care Physician: Gregg Peña M.D. DISCHARGE SUMMARY IDENTIFYING DATA Mr. Pinedo is a 56-year-old, disabled, white male who is a resident of [place], [place], who is very well known to us from previous multiple encounters, transferred to us from [facility]. DISCHARGE DIAGNOSES Psychiatric: Alcohol dependence, moderate and acute withdrawals; alcohol-induced mood disorder. Medical: Hypertension, hepatitis C, esophageal varices, history of pancreatitis, cirrhosis of the liver. Stressors: Moderate psychosocial stressors. HISTORY OF PRESENT ILLNESS Please see initial psychiatric evaluation for details. PAST PSYCHIATRIC HISTORY Please see initial psychiatric evaluation for details. PAST MEDICAL HISTORY Please see initial psychiatric evaluation for details. HOSPITAL COURSE The patient was admitted to the adult psychiatric and chemical dependency unit at [facility] and was oriented to the hospital environment. Routine p.r.n. medications were initiated, and he was started on the detox protocol and was closely monitored. He was taking the medications regularly and was tolerating them fairly well, and was able to show a decent therapeutic response with improvement in depression and anxiety, and was able to come out of the detox without any complications and as such, it was decided that he will be discharged home and will continue treatment on an outpatient basis. DISCHARGE CONDITION Stable. PROGNOSIS Fair. Dictated by... Madi Barragan M.D. IAA/modl Unit #: [id number] #: [id number] Patient: ANKUR PINEDO TD: 05/03/2017 11:30 JOB #: [id number] DISCHARGE SUMMARY Page 1 of 1 X Madi Barragan MD X DISCHARGE SUMMARY
[~2017-04-27 22:00] MED LIST changes: +AMOXICILLIN PO; +ASPIRIN81 M2 PO; +CHRONULAC10 GM/15 M PO; +CLARITHROMYCIN500 MG PO; +DIFLUCAN200 MG PO; +EFFEXOR PO; +K-DUR20 ME2 PO; +MAXIMUM DAILY1 EACH PO; +PATIENT'S PHARMACY; +ROXICODONE5 MG PO; +XIFAXAN550 MG PO
== END 2017-05-03 12:00 | disposition home or self-care (01) | DRG 897 ==
LOC: P1E 04-28 06:02
PROC: HZ2ZZZZ Detoxification Services for Substance Abuse Treatment (ICD-10-PCS; principal; 2017-04-28)
DX: F10.239 Alcohol dependence with withdrawal, unspecified (principal); I85.10 Secondary esophageal varices without bleeding; K70.30 Alcoholic cirrhosis of liver without ascites; F10.24 Alcohol dependence with alcohol-induced mood disorder; I10 Essential (primary) hypertension; B19.20 Unspecified viral hepatitis C without hepatic coma; Y90.8 Blood alcohol level of 240 mg/100 ml or more
CPT/HCPCS: 36415; 70450; 71010; 80048; 80076; 82140; 82947; 83690; 85025; 85610; 85730; 93005; 96361; 96374; 96375; 99284; C9113; G0480; J1953

== ENCOUNTER 2017-05-08 09:00 | Inpatient (IN) | payer MEDICARE, OTHER ==
[~2017-05-08] VITALS: Ht 170.2 cm; Wt 112.9 kg
--- NOTE | ~2017-05-08 | PN ---
Unit #: [id number] #: [id number] Patient: ANKUR FREEMAN [id number] [facility] [address] [place] [address] [id number] MR#: [id number] NAME: ANKUR FREEMAN ROOM: [facility] Age: 56 Sex: M Admission Date: 05/08/2017 : 1960 Attending Physician: Madi Barragan M.D. Admitting Physician: Madi Barragan M.D. Primary Care Physician: Josephine Alexis PROGRESS NOTES DATE OF SERVICE 05/13/2017 DISCUSSION Mr. Freeman is a 56-year-old white male who was seen today. Chart was reviewed and case was discussed with the staff. He has been anxious, withdrawn, and rather seclusive to himself. Meanwhile, he has been cooperative with the treatment recommendations and has been taking the medications and tolerating them fairly well with no reported side effects. MENTAL STATUS EXAMINATION Middle-aged white male who is casually dressed with fair personal hygiene, appears to be in no acute distress or discomfort. He was awake and alert on interaction with intact orientation. His mood is anxious with congruent affect. He denies any suicidal or homicidal ideations. His insight and judgment remain slightly impaired. TREATMENT PLAN 1. We will continue him on his current medications and treatment protocol. We will monitor his response to the medications and make further adjustments as needed. 2. We will continue to follow up. Dictated by... Madi Barragan M.D. IAA/bzg TD: 05/13/2017 14:49 JOB #: [id number] [facility] PROGRESS NOTES Page 1 of 1 X Madi Barragan MD X PROGRESS NOTE
--- NOTE | ~2017-05-08 | PN ---
Unit #: [id number] #: [id number] Patient: ANKUR PINEDO [id number] [facility] [address] [place] [address] [id number] MR#: [id number] NAME: ANKUR PINEDO ROOM: [facility] Age: 56 Sex: M Admission Date: 05/08/2017 : 1960 Attending Physician: Madi Barragan M.D. Admitting Physician: Madi Barragan M.D. Primary Care Physician: Josephine Alexis PROGRESS NOTES DATE 05/10/2017 DISCUSSION Mr. Pinedo is a 56-year-old, white male with alcohol dependence and mood disorder who was seen today and chart was reviewed and case was discussed with the staff. He seemed to be anxious, withdrawn, . Meanwhile, he has been taking the medication and tolerating fairly well with no reported side effects. MENTAL STATUS EXAM Middle-aged white male who was casually dressed with fair personal hygiene, appears to be in no acute distress or discomfort. He was awake and alert on interaction with intact orientation. His mood was anxious with congruent affect. His speech was slow and tangential. His thought processes were disorganized with some looseness of associations. His insight and judgement remains significantly impaired. TREATMENT PLAN 1. We will continue him on his current medications and treatment protocol. We will monitor his response to the medication and make further adjustments as needed. 2. We will continue to follow up. Dictated by... Josephine Delcid/adelia TD: 05/11/2017 04:18 JOB #: [id number] Unit #: [id number] #: [id number] Patient: ANKUR PINEDO PROGRESS NOTES Page 1 of 1 X Madi Barragan MD PROGRESS NOTE
--- NOTE | ~2017-05-08 | CO ---
Unit #: [id number] #: [id number] Patient: ANKUR PINEDO [id number] [place] [address] [id number] I MR#: [id number] NAME: ANKUR PINEDO ROOM: [facility] Age: 56 Sex: M Admission Date: 05/08/2017 : 1960 Attending Physician: Madi Barragan M.D. Primary Care Physician: Gregg Peña M.D. Consultation Date: 05/09/2017 CONSULTATION REPORT HISTORY OF PRESENT ILLNESS Ankur reports chest pain and heartburn that he first noticed last night and has not been getting any better since then. The pain does not get worse when he lies down. It does not get worse with exertion. He occasionally does have some shortness of air and that also does not really get worse with exertion. He does report that occasionally his right knee will go out and he falls and a couple of days ago, he fell and hit his chest. He has pain that is worse in his chest when he rubs the area or when the area is touched. All started since that fall. He also has pain when he takes a very deep breath. He has no other complaints. PHYSICAL EXAMINATION CARDIAC: Regular rate and rhythm. No murmurs, gallops, or rubs. RESPIRATORY: Clear to auscultation bilaterally. MUSCULOSKELETAL: Pain with palpation of left chest wall. No bruising noted. ASSESSMENT AND PLAN 1. Musculoskeletal pain. We will begin ibuprofen 400 mg p.o. q.6 hours p.r.n. for pain. 2. Acid reflux. We will begin Zantac 150 mg p.o. q.12 hours. The patient had previously been taking omeprazole, but that has been discontinued. It looks like it had been several months since he had last taken that. Dictated by... Marlene Tavarez/manuel TD: 05/10/2017 04:21 JOB #: [id number] Unit #: [id number] #: [id number] Patient: ANKUR PINEDO CONSULTATION REPORT Page 1 of 1 X CASEY ADAMS APRN CONSULTATION REPORT
--- NOTE | ~2017-05-08 | HP ---
Unit #: [id number] #: [id number] Patient: ANKUR PINEDO [id number] [facility] [address] [place] [address] [id number] I MR#: [id number] NAME: ANKUR PINEDO ROOM: [facility] Age: 56 Sex: M Admission Date: 05/08/2017 : 1960 Attending Physician: Madi Barragan M.D. Admitting Physician: Madi Barragan M.D. Primary Care Physician: Gregg Peña M.D. HISTORY AND PHYSICAL Ankur is a 56 year old admitted to [facility] because of his continued abuse of alcohol. Patient was seen and H and P dated 04/07/17 was reviewed. This is current. No changes. Please see H and P dated 04/07/17. Dictated by... Claudine Cruz P.A.-C. for Josephine Johnson/jacoby TD: 05/08/2017 22:12 JOB #: [id number] HISTORY AND PHYSICAL Page 1 of X Claudine Cruz HISTORY AND PHYSICAL
--- NOTE | ~2017-05-08 | PN ---
Unit #: [id number] #: [id number] Patient: ANKUR PINEDO [id number] [facility] [address] [place] [address] [id number] I MR#: [id number] NAME: ANKUR PINEDO ROOM: [facility] Age: 56 Sex: M Admission Date: 05/08/2017 : 1960 Attending Physician: Madi Barragan M.D. Admitting Physician: Madi Barragan M.D. Primary Care Physician: Josephine Alexis PROGRESS NOTES DATE 05/09/2017 DISCUSSION Mr. Pinedo is a 56-year-old white male with alcohol dependence who was seen today and chart was reviewed and case was discussed with the staff. He has been anxious, withdrawn and in distress and discomfort and was complaining of chest tightness and EKG was requested which was within normal limits. He has a history of gastroesophageal reflux disease and medical consultation has been requested as well. MENTAL STATUS EXAMINATION Middle-aged white male who was casually dressed with marginal personal hygiene and appears to be in distress and discomfort. He was awake and alert with intact orientation. His mood was anxious and depressed with congruent affect. His speech is slow and restricted in content. He denies any current suicidal or homicidal ideation. His insight and judgement remains significantly impaired. TREATMENT PLAN 1. Will continue on his current medications and alcohol detox. Will also request medical consultation. 2. Will continue to follow up. Dictated by... Josephine Delcid/jacoby TD: 05/09/2017 18:09 JOB #: [id number] Unit #: [id number] #: [id number] Patient: ANKUR PINEDO PROGRESS NOTES Page 1 of 1 X Madi Barragan MD X PROGRESS NOTE
--- NOTE | ~2017-05-08 | PN ---
Unit #: [id number] #: [id number] Patient: ANKUR PINEDO [id number] [facility] [address] [place] [address] [id number] I MR#: [id number] NAME: ANKUR PINEDO ROOM: [facility] Age: 56 Sex: M Admission Date: 05/08/2017 : 1960 Attending Physician: Madi Barragan M.D. Admitting Physician: Madi Barragan M.D. Primary Care Physician: Josephine Alexis PROGRESS NOTES DATE 05/12/2017 DISCUSSION Mr. Pinedo is a 56-year-old white male who was seen today and chart was reviewed and case was discussed with the staff. He has been doing fairly well and has been showing improvement in his depression and anxiety and has been coming out of the detox and has not had any complications this time around. He has been taking medications and tolerating them fairly well. MENTAL STATUS EXAMINATION Middle-aged white male who was casually dressed with fair personal hygiene and appears to be in no acute distress or discomfort. He was awake and alert on interaction with intact orientation. His mood was anxious with congruent affect. His speech is slow and goal-directed. He denies any suicidal or homicidal ideations and also denies any auditory or visual hallucinations. His insight and judgement remains slightly impaired. TREATMENT PLAN 1. Will continue on his current medications and treatment protocol and will monitor his response to the medications and make further adjustments as needed. 2. Will continue to follow up. Dictated by... Josephine Delcid/jacoby TD: 05/12/2017 20:57 JOB #: [id number] Unit #: [id number] #: [id number] Patient: ANKUR PINEDO PROGRESS NOTES Page 1 of 1 X Madi Barragan MD X PROGRESS NOTE
--- NOTE | ~2017-05-08 | PN ---
Unit #: [id number] #: [id number] Patient: ANKUR PINEDO [id number] [facility] [address] [place] [address] [id number] MR#: [id number] NAME: ANKUR PINEDO ROOM: [facility] Age: 56 Sex: M Admission Date: 05/08/2017 : 1960 Attending Physician: Madi Barragan M.D. Admitting Physician: Madi Barragan M.D. Primary Care Physician: Josephine Alexis PROGRESS NOTES DATE 05/11/2017 DISCUSSION Mr. Pinedo is a 56-year-old, white male who was seen today and chart was reviewed and case was discussed with the staff. He has been anxious, withdrawn and seclusive to himself. He reports not feeling good and he has been complaining of restlessness, anxiety, acid reflux, as well as poor sleep at night. Meanwhile, he has been taking medications and tolerating them fairly well with no reported side effects. MENTAL STATUS EXAM Middle-aged white male who was casually dressed with fair personal hygiene, appears to be in no acute distress or discomfort. He was awake and alert on interaction with intact orientation. His mood was anxious with congruent affect. His speech was slow and goal directed. He denies any suicidal or homicidal ideation. His insight and judgement remains slightly impaired. TREATMENT PLAN 1. We will continue him on his current medications and treatment protocol. We will monitor his response to the medication and make further adjustments as needed. 2. We will continue to follow up. Dictated by... Josephine Delcid/adelia TD: 05/12/2017 03:08 JOB #: [id number] Unit #: [id number] #: [id number] Patient: ANKUR PINEDO PROGRESS NOTES Page 1 of 1 X Madi Barragan MD PROGRESS NOTE
--- NOTE | ~2017-05-08 | EKG ---
PATIENT: ANKUR PINEDO UNIT #: [id number] Ventricular Rate: 95 BPM Atrial Rate: 95 BPM P-R Interval: 130 ms QRS Duration: 82 ms Q-T Interval: 362 ms QTC Calculation(Bezet): 454 ms P Corcoran: 29 degrees Calculated R Corcoran: 41 degrees Calculated T Corcoran: 48 degrees Diagnosis Line: Normal sinus rhythm Diagnosis Line: Normal ECG Diagnosis Line: When compared with ECG of 09-MAY-2017 10:35, Diagnosis Line: (unconfirmed) Diagnosis Line: No significant change was found Diagnosis Line: Confirmed by JOSÉ HOWELL MD ([id number]) on 05/11/2017 Diagnosis Line: 6:21:17 PM INTERPRETING MD: LYNDA RAMIRES
--- NOTE | ~2017-05-08 | TN ---
Unit #: [id number] #: [id number] Patient: ANKUR PINEDO [id number] [facility] [address] [place] [address] [id number] I MR#: [id number] NAME: ANKUR PINEDO ROOM: 83 Age: 56 Sex: M Admission Date: 05/08/2017 : 1960 Discharge Date: 05/15/2017 Attending Physician: Madi Barragan M.D. Primary Care Physician: Gregg Peña M.D. LOC TRANSFER NOTE DATE OF SERVICE: 05/18/2017 HISTORY OF PRESENT ILLNESS Mr. Pinedo is a 56-year-old single, disabled, white male with history of mood disorder and alcohol dependence, was stepped down to the outpatient treatment program from the adult inpatient psychiatric unit, where he was hospitalized under my care from 05/08/2017 to 05/15/2017, and was medically detoxed from alcohol and was stepped down to the outpatient treatment program. On evaluation by me today, the patient reports that he got out of the hospital, went home to his own place where he lives alone and denies any relapses, though he stated that he is interested in doing the Vivitrol injection program due to multiple relapses on alcohol and ability to stay sober on his own. He does report some depression, anxiety, however, he denies any suicidal ideations, intent, or plan. SUBSTANCE ABUSE HISTORY The patient reports long history of alcohol dependence and alcohol has been his drug of choice and has been drinking regularly and heavily and has history of withdrawal seizures and delirium tremens. PAST MEDICAL HISTORY Gastroesophageal reflux disease. ALLERGIES No known medication allergies. PERSONAL AND SOCIAL HISTORY A 56-year-old white male, who reports that he is single, unemployed, disabled, and lives by himself and has poor social support system. MENTAL STATUS EXAMINATION Middle-aged white male, who was casually dressed with fair personal hygiene, appears to be in no acute distress or discomfort. He was awake and alert on interaction with intact orientation. His mood was anxious with a congruent affect. His speech was slow and goal directed. He denies any suicidal or homicidal ideations and also denies any auditory or visual hallucinations. His insight and judgment remain slightly impaired. DIAGNOSTIC IMPRESSION Psychiatric: Alcohol dependence, moderate; alcohol-induced mood disorder. Medical: Gastroesophageal reflux disease. Stressors: Moderate psychosocial stressors. Unit #: [id number] #: [id number] Patient: ANKUR PINEDO TREATMENT PLAN 1. The patient has presented with a history of mood disorder and substance abuse. We will recommend enrolling him into the outpatient treatment program and maintaining him on his current medications. We will monitor his response and make further adjustments as needed. 2. Supportive therapy was provided to the patient. 3. Safe, structured, and nourishing environment will be provided. ESTIMATED LENGTH OF STAY 14 to 21 days. ABILITY TO HELP SELF Limited. WILLINGNESS TO HELP SELF The patient appears to be willing to help self. STRENGTHS 1. Communicative. 2. Cooperative. PROBLEMS 1. Chronic dysphoric symptoms. 2. Poor social support system. DISCHARGE CRITERIA This will be contingent upon the patient's ability to show resolution of his depression and anxiety and his ability to stay safe and sober, particularly after discharge from the program. Dictated by... Josephine Delcid/manuel TD: 05/18/2017 11:55 JOB #: [id number] LOC TRANSFER NOTE Page 1 of 1 X Madi Barragan MD X LOC TRANSFER NOTE
--- NOTE | ~2017-05-08 | DS ---
Unit #: [id number] #: [id number] Patient: ANKUR FREEMAN [id number] [place] [address] [id number] I MR#: [id number] NAME: ANKUR FREEMAN ROOM: [facility] Age: 56 Sex: M Admission Date: 05/08/2017 : 1960 Discharge Date: 05/15/2017 Attending Physician: Madi Barragan M.D. Primary Care Physician: Gregg Peña M.D. DISCHARGE SUMMARY IDENTIFICATION DATA Mr. Freeman is a 56-year-old disabled white male who is a resident of [place], [place], and was self-referred to the hospital on voluntary basis. DISCHARGE DIAGNOSES PSYCHIATRIC: Alcohol dependence, moderate, in acute withdrawal. Alcohol-induced mood disorder. MEDICAL: Hypertension. Hepatitis C. Esophageal varices. History of pancreatitis. Cirrhosis of the liver. STRESSORS: Mild psychosocial stressors. HISTORY OF PRESENT ILLNESS Same as in initial psychiatric evaluation. PAST PSYCHIATRIC HISTORY Same as in initial psychiatric evaluation. PAST MEDICAL HISTORY Same as in initial psychiatric evaluation. HOSPITAL COURSE The [facility] and was oriented to the hospital environment. Routine p.r.n. medications were initiated, and he was started back on his home medication and detox protocol was initiated as well. He was taking the medications regularly and was tolerating them fairly well and was able to come out of the detox without any complications and was wanting to go home and was willing to continue treatment on outpatient basis. I referred for him to come to [facility] with a plan that I would refer him to the Vivitrol injection program as well, and so far it appears that he has been agreeable to that plan of action, and he was not seen to be a danger to self or anyone else. As such, it was decided that he will be discharged home, and we will continue treatment on outpatient basis. DISCHARGE MEDICATIONS None. CONDITION AT DISCHARGE Stable. Unit #: [id number] #: [id number] Patient: ANKUR FREEMAN PROGNOSIS Fair. Dictated by... Madi Barragan M.D. IAA/george TD: 05/15/2017 07:26 JOB #: [id number] DISCHARGE SUMMARY Page 1 of 1 X Madi Barragan MD DISCHARGE SUMMARY
--- NOTE | ~2017-05-08 | PN ---
Unit #: [id number] #: [id number] Patient: ANKUR PINEDO [id number] [facility] [address] [place] [address] [id number] I MR#: [id number] NAME: ANKUR PINEDO ROOM: [facility] Age: 56 Sex: M Admission Date: 05/08/2017 : 1960 Attending Physician: Madi Barragan M.D. Admitting Physician: Madi Barragan M.D. Primary Care Physician: Josephine Alexis PROGRESS NOTES DATE May 14, 2017 DISCUSSION Mr. Pinedo is a 56-year-old white male, with mood disorder, who was seen today and chart was reviewed and the case was discussed with the staff. He remains anxious, withdrawn, depressed, and rather seclusive to himself. Meanwhile, he has been cooperative with the treatment recommendations and he has been taking the medications and tolerating them fairly well with no reported side effects. MENTAL STATUS EXAMINATION Middle-aged white male, who was casually dressed with fair personal hygiene and appears to be in no acute distress or discomfort. He was awake and alert on interaction with intact orientation. His mood is anxious and depressed with a congruent affect. He denies any suicidal or homicidal ideations. His insight and judgment remain slightly impaired. TREATMENT PLAN 1. We will continue him on his current medications and treatment protocol, and will monitor his response to the medications, and make further adjustments as needed. 2. We will continue to followup. Dictated by... Josephine Delcid/daniel TD: 05/14/2017 12:58 JOB #: [id number] Unit #: [id number] #: [id number] Patient: ANKUR PINEDO PROGRESS NOTES Page 1 of 1 X Madi Barragan MD PROGRESS NOTE
--- NOTE | ~2017-05-08 | PA ---
Unit #: [id number] #: [id number] Patient: ANKUR PINEDO [id number] [facility] [address] [place] [address] [id number] MR#: [id number] NAME: ANKUR PINEDO ROOM: P183 Age: 56 Sex: M Admission Date: 05/08/2017 : 1960 Date of Assessment: Attending Physician: Madi Barragan M.D. Admitting Physician: Madi Barragan M.D. Primary Care Physician: Gregg Peña M.D. PSYCHIATRIC ASSESSMENT DATE OF SERVICE 05/08/2017. IDENTIFYING DATA Mr. Pinedo is a 56-year-old single disabled white male, who is a resident of [place], [place], and just discharged from my care and was brought back to the hospital by his significant other on a voluntary basis. CHIEF COMPLAINT "I don't even know how much I've been drinking." HISTORY OF PRESENT ILLNESS Mr. Pinedo is a 56-year-old white male with a lifelong history of alcohol dependence, who has been under my care several times, and in the last couple of times, he has been pushing to leave and that has resulted into poor prognosis as he relapsed soon afterwards and comes in, but in a disheveled, unkempt and distressed state, and once again he was seen to be anxious, withdrawn, unkempt, disheveled, in distress or discomfort, and he stated "I don't even know how much I've been drinking. I don't stop drinking. I've been feeling miserable and I'm not being suicidal. I'm starting to have some symptoms and I'm seeing bugs. I've been vomiting, diarrhea, and I've not slept. I'm nervous and crying." He does have a history of delirium tremens and complicated detox, and his girlfriend stated "he just got out of here about 10 days ago and has been drinking all day and he drinks beer, 22 ounce, about 12 or 14 a day. His last drink was about 5:00 in the morning. He just drinks beer and does not do any other drugs besides that." He was seen to be a significant danger to himself and as such, recommendation for medical detox was made and the patient was hospitalized. SUBSTANCE ABUSE HISTORY The patient reports a long history of alcohol dependence and describes alcohol to be his drug of choice and denies any other drug abuse and reports that he has been drinking 22-ounce beers, 12 to 14 a day. PAST PSYCHIATRIC HISTORY The patient has had a history of multiple inpatient psychiatric and chemical dependency treatments at [facility] and has been to long-term rehab level of care as well and he has attended the intensive outpatient treatment program and has not been able to achieve any long-term sobriety. PAST MEDICAL HISTORY Unit #: [id number] #: [id number] Patient: ANKUR PINEDO The patient's medical history is significant for hepatitis C, hypertension, gastroesophageal reflux disease. ALLERGIES No known medication allergies. PERSONAL AND SOCIAL HISTORY A 56-year-old white male, who reports that he is single, disabled, and lives with his significant other and has fairly decent social support system. MENTAL STATUS EXAMINATION A middle-aged white male, who was casually dressed with a fair personal hygiene and appears to be in no acute distress or discomfort. He was awake and alert on interaction with intact orientation to time, place and person. His mood was anxious with a congruent affect. His speech was slow and restricted in content. His thought processes were disorganized with some looseness of associations. He denies any suicidal or homicidal ideations and also denies any auditory or visual hallucinations. His insight and judgment remain significantly impaired. DIAGNOSTIC IMPRESSION Psychiatric: Alcohol dependence, moderate, in acute withdrawals. Alcohol-induced mood disorder. Medical: Hepatitis C, hypertension, gastroesophageal reflux disease. Stressors: Moderate psychosocial stressors. TREATMENT PLAN 1. The patient has presented with a history of substance abuse and mood disorder, and has been decompensating and will need inpatient hospitalization for detoxification, safety, and stabilization. We will start him back on his home medications. We will adjust the medications and monitor response. 2. Supportive therapy was provided to the patient. 3. Safe, structured, and nourishing environment will be provided. ESTIMATED LENGTH OF STAY 5 to 7 days. ABILITY TO HELP SELF Limited. WILLINGNESS TO HELP SELF The patient appears to be willing to help self. STRENGTHS 1. Communicative. 2. Cooperative. PROBLEMS 1. Chronic chemical dependency. 2. Chronic dysphoric symptoms. 3. Poor social support system. DISCHARGE CRITERIA This will be contingent upon the patient's ability to go through detox Unit #: [id number] #: [id number] Patient: ANKUR PINEDO without having any significant withdrawal symptoms as well as his ability to stay safe to himself, particularly after discharge from the hospital. Dictated by... Josephine Delcid/manuel TD: 05/10/2017 04:37 JOB #: [id number] PSYCHIATRIC ASSESSMENT Page 1 of 1 X Madi Barragan MD X PSYCHIATRIC ASSESSMENT
== END 2017-05-15 10:45 | disposition home or self-care (01) | DRG 897 ==
LOC: P1E 11:30
PROC: HZ2ZZZZ Detoxification Services for Substance Abuse Treatment (ICD-10-PCS; principal; 2017-05-08)
DX: F10.230 Alcohol dependence with withdrawal, uncomplicated (principal); F10.24 Alcohol dependence with alcohol-induced mood disorder; K74.60 Unspecified cirrhosis of liver; B18.2 Chronic viral hepatitis C; I10 Essential (primary) hypertension; K21.9 Gastro-esophageal reflux disease without esophagitis; M79.1 Myalgia
CPT/HCPCS: 86592; 93005; J2550

== ENCOUNTER 2017-05-26 09:48 | Emergency (ER) | payer MEDICARE, OTHER ==
[~2017-05-26] VITALS: Ht 172.7 cm; Wt 90.7 kg
--- NOTE | ~2017-05-26 | CT71 ---
[facility] A Service of [facility] RADIOLOGY TEXT RESULTS PATIENT: ANKUR PINEDO LOCATION: [facility] : 58 UNIT #: [id number] AGE: [address]: Carisa Abrue MD SEX: M ORDER DR: [id number] [address] [address] [id number] MR#: [id number] Acc #: [id number] NAME: ANKUR PINEDO : 1960 SEX: M STUDY DATE/TIME: 05/26/2017 12:10 UNIT: [facility] ROOM: STUDY DESCRIPTION: CT Head Wo Contrast Attending Physician: Carisa Abreu M.D. Ordering Physician: Angélica Chapman M.D. Primary Care Physician: Gregg Peña M.D. MEDICAL IMAGING REPORT This report is preliminary unless electronic signature is present EXAM CT scan of the head without contrast INDICATION Syncope today with headache for 2 days. Started new blood pressure medication a month ago. COMPARISON 04/27/2017. TECHNIQUE This CT exam was performed with one or more of the following radiation dose reduction techniques: automatic control, adjustment of mA and/or kV according to patient size, and iterative reconstruction. FINDINGS Unenhanced images were obtained through the brain. There is mild generalized atrophy. There are no masses or extraaxial fluid collections or hemorrhage. IMPRESSION Mild generalized atrophy otherwise normal. Dictated by... Carl Horner M.D. THIS IS AN ELECTRONICALLY VERIFIED REPORT Carl Horner M.D. at 05/26/2017 10:08 PM JENNIFER/lamar TD: 05/26/2017 16:33 JOB #: [id number] [facility] A Service of [facility] RADIOLOGY TEXT RESULTS PATIENT: ANKUR PINEDO LOCATION: [place] : 58 UNIT #: [id number] AGE: [address]: Carisa Abreu MD SEX: M ORDER DR: MEDICAL IMAGING REPORT Page 1 of 1 COPY
--- NOTE | ~2017-05-26 | CR72 ---
[facility] A Service of [facility] RADIOLOGY TEXT RESULTS PATIENT: ANKUR PINEDO LOCATION: [facility] : 58 UNIT #: [id number] AGE: [address]: Carisa Abreu MD SEX: M ORDER DR: [id number] [facility] [address] [place], [place] [address] [id number] MR#: [id number] Acc #: [id number] NAME: ANKUR PINEDO : 1960 SEX: M STUDY DATE/TIME: 05/26/2017 UNIT: [facility] ROOM: STUDY DESCRIPTION: CR Chest Single View Portable Attending Physician: Angélica Chapman M.D. Ordering Physician: Angélica Chapman M.D. Primary Care Physician: Gregg Peña M.D. MEDICAL IMAGING REPORT This report is preliminary unless electronic signature is present EXAM Chest portable 05/26/2017 1115 hours HISTORY 56-year-old man with shortness of air and syncopal episode today. History of hepatitis C, hypertension, and atrial fibrillation COMPARISON Chest x-rays, 04/24/2017. FINDINGS Portable upright chest demonstrates heart size within normal limits. Lung volumes are slightly low with perihilar vascular crowding and calcified granulomatous changes which are stable. There is no acute pulmonary density or pleural effusion. IMPRESSION No acute cardiopulmonary findings. No change from 04/24/2017. Dictated by... Paige Farias M.D. THIS IS AN ELECTRONICALLY VERIFIED REPORT Paige Farias M.D. at 05/26/2017 2:28 PM Ana Rosa TD: 05/26/2017 14:14 JOB #: [id number] MEDICAL IMAGING REPORT Page 1 of 1 COPY
--- NOTE | ~2017-05-26 | EKG ---
PATIENT: ANKUR PINEDO UNIT #: [id number] Ventricular Rate: 58 BPM Atrial Rate: 58 BPM P-R Interval: 136 ms QRS Duration: 88 ms Q-T Interval: 454 ms QTC Calculation(Bezet): 445 ms P Brewster: 17 degrees Calculated R Brewster: 23 degrees Calculated T Brewster: 36 degrees Diagnosis Line: Sinus bradycardia Diagnosis Line: Otherwise normal ECG Diagnosis Line: When compared with ECG of 09-MAY-2017 10:35, Diagnosis Line: Vent. rate has decreased BY 37 BPM Diagnosis Line: ST elevation now present in Lateral leads Diagnosis Line: Confirmed by JOSÉ HOWELL MD ([id number]) on 05/27/2017 Diagnosis Line: 7:13:16 PM INTERPRETING MD: LYNDA RAMIRES
[2017-05-26 11:30] LABS: BASOPHIL% 0.8 % (0-2.5); EOSINOPHIL# 0.1 X10e3 (0-0.7); HEMATOCRIT 39.7 % (38.0-50.0); HEMOGLOBIN 13.1 gm/dL (13.0-16.0); LYMPHOCYTE# 1.9 X10e3 (1.0-3.5); LYMPHOCYTE% 30.1 % (17.0-45.0); MEAN CELL VOLUME 92.4 FL (83-96); MEAN CORPUSCULAR HEMOGLOBIN 30.6 PG (28-34); MEAN CORPUSCULAR HGB CONC 33.1 g/dL (30-36); MEAN PLATELET VOLUME 7.5 FL (6.5-11.5); MONOCYTE# 0.4 X10e3 (0-1.0); NEUTROPHIL# 3.8 X10e3 (1.5-7.1); NEUTROPHIL% 61.1 % (40-75); PLATELET COUNT 180 X10e3 (140-420); RED BLOOD COUNT 4.29 X10e (3.90-5.60); RED CELL DISTRIBUTION WIDTH 16.1 % (11.0-15.5); WHITE BLOOD COUNT 6.3 X10e3 (4.0-10.5)
[2017-05-26 11:42] LABS: DIFF IND NO
[2017-05-26 11:47] LABS: POC - CKMB 1.9 ng/mL (0.0-7.9); POC - TROPONIN <0.05 ng/mL (<=0.05)
[2017-05-26 11:49] LABS: INR 1.1; PROTHROMBIN TIME (PATIENT) 12.2 SECONDS (10.0-11.7)
[2017-05-26 12:03] LABS: ALBUMIN SERUM 3.9 g/dL (3.5-5.0); ALKALINE PHOSPHATASE 50 U/L (32-92); ALT (SGPT) 30 U/L (10-40); AST (SGOT) 36 U/L (10-42); BILIRUBIN, DIRECT 0.1 mg/dL (0.0-0.2); BILIRUBIN,INDIRECT 1.2 mg/dL (0.0-0.9); BILIRUBIN,TOTAL 1.3 mg/dL (0.2-2.0); BLOOD UREA NITROGEN 15 mg/dL (9-23); CALCIUM SERUM 8.7 mg/dL (8.4-10.2); CARBON DIOXIDE 25 mmol/L (22-31); CHLORIDE 108 mmol/L (100-111); GLOM FILT RATE Estimated 83.2 mL/min (>60); GLUCOSE FASTING 120 mg/dL (70-110); POTASSIUM 4.1 mmol/L (3.5-5.1); PROTEIN TOTAL SERUM 7.6 g/dL (6.0-8.3); SODIUM 140 mmol/L (135-145)
[2017-05-26 12:05] LABS: ALCOHOL BLOOD <5 mg/dL (0)
[2017-05-26 15:42] LABS: AMPHETAMINE NEG (NEG); BARBITURATES NEG (NEG); BENZODIAZEPINES POS (NEG); COCAINE NEG (NEG); MARIJUANA NEG (NEG); OPIATES NEG (NEG); TRICYCLIC ANTIDEPRESSANTS POS (NEG); U METHADONE NEG (NEG)
== END 2017-05-26 16:18 | disposition home or self-care (01) ==
LOC: CED 09:48
PROVIDERS: Emergency Medicine
DX: R55 Syncope and collapse (principal); F15.10 Other stimulant abuse, uncomplicated; I10 Essential (primary) hypertension
CPT/HCPCS: 36415; 70450; 71010; 80048; 80076; 80307; 82553; 82947; 84484; 85025; 85610; 93005; 99285; G0480